=== PATIENT | female | born 1965 | race Caucasian/White ===

== ENCOUNTER → 2018-06-18 | Outpatient (CLI) | payer BC ==
[~2018-06-18] MED LIST: IOPAMIDOL 370 MG/ML 200 ML INFUS..BTL INJ ONE; METOPROLOL SUCC50 MG PO; NORCO 5-325 TA1 EACH PO; SODIUM CHLORIDE 0.9% 50ML 50 ML ONE
[2018-06-18 17:46] LABS: BLOOD UREA NITROGEN 18 mg/dL (7-26); BUN/CREATININE RATIO 25 (6-25); CREATININE, SERUM 0.73 mg/dL (0.57-1.11); EST GLOMERULAR FILTRATION RATE > 60 ML/MIN (60-)
--- NOTE | 2018-06-18 19:49 | Diagnostic Imaging Report ---
History: Follow-up multiple sclerosis Comparison studies:None Technique: Axial images were obtained from the brain and cervical spine with and without IV contrast. Coronal and sagittal images reconstructed from the axial data. Intravenous contrast: Yes Dose modulation, iterative reconstruction, and/or weight based adjustment of the mA/kV was utilized to reduce the radiation dose to as low as reasonably achievable. Findings: Head CT: Scalp/skull: No abnormalities. No fractures, blastic or lytic lesions. Brain sulci: Appropriate for age. Ventricles: Normal in size and configuration. No hydrocephalus. Extra-axial spaces: No masses. No fluid collections. Parenchyma: No significant white matter lesions. No masses, hemorrhage, acute or chronic cortical vascular insults. No abnormal enhancement. Sellar/suprasellar region: No abnormalities. Craniocervical junction: Patent foramen magnum. No Chiari one malformation. Cervical spine CT: Fractures: None. Soft tissues: No gross abnormalities. Atlantoaxial articulation: Intact. Alignment: Reversal of the cervical spine lordosis. No scoliosis. Cervicomedullary junction: No abnormalities. Patent foramen magnum. Vertebrae: No infection or neoplasm. Degenerative changes: Disc degeneration with decreased intervertebral space and endplate sclerotic changes at C6-7. Left uncinate process hypertrophy and facet hypertrophy at C5-6 and C6-7 results in no significant canal stenosis and moderate left foraminal narrowing at C6-7. Incidental findings: None. Impression: Head CT: 1. No abnormality. 2. The evaluation of white matter demyelinating lesions is limited on CT, recommend MRI with contrast for better assessment. Cervical spine CT: 1. No acute abnormalities. 2. Degenerative changes as described above. 3. Limited evaluation of the spinal cord, recommend MRI with contrast for assessment of cord lesions. Signed by: DR Eddie Ellis M.D. on 06/18/2018 7:46 PM
== END ==
LOC: CT 16:17
PROVIDERS: ATTEND Psychiatry & Neurology Clinical Neurophysiology
DX: G37.9 Demyelinating disease of central nervous system, unspecified (principal)
CPT/HCPCS: 36415; 70470; 72127; 82565; 84520; Q9967

== ENCOUNTER 2019-09-06 22:29 | Inpatient (IN) | payer BC ==
[~2019-09-06] VITALS: Ht 157.5 cm; Wt 62.6 kg
[~2019-09-06 22:29] MED LIST changes: -IOPAMIDOL 370 MG/ML 200 ML INFUS..BTL INJ ONE; -SODIUM CHLORIDE 0.9% 50ML 50 ML ONE
--- OUTSIDE RECORDS SUMMARY | 2019-09-06 22:31 | XMS REPORT ---
Author [facility] Address Unknown Phone Unavailable Care Team Providers Care Warehouse Logistics Manager Name Role Phone Unavailable Unavailable Payers Payer Name Policy Type Policy Number Effective Date Expiration Date Problems This patient has no known problems. Allergies, Adverse Reactions, Alerts Allergy Name Allergy Type Status Severity Reaction(s) Onset Date Inactive Date Treating Clinician Comments No Known Allergies DA Active U 2014-12-29 00:00:00 Medications This patient has no known medications. Results Test Description Test Time Test Comments Text Results Atomic Results Result Comments [facility] 2019-03-27 16:55:00 RUN DATE: 03/27/19 [place] - Lab PAGE 1 RUN TIME: 1655 Specimen Inquiry RUN USER: INTERFACE PATIENT: COXLOI LOC: CHAI Solis #: [id number] AGE/SX: 53/F ROOM: RE03/21/19REG DR: Jake Bains : 67 BED: DIS: [place] [facility] [facility] [place] SPEC #: [id number] RECD: 03/22/19 STATUS: MAGALYS FRANK #: [id number] YUE: 03/21/19- SUBM DR: Jake Bains MD ENTERED: 03/22/19 SP TYPE: STOMACH OTHR DR: Dasha Minaya MD ORDERED: GROSS COPIES TO: Dasha Minaya MD [address] [place] [address] Jake Bains MD [address] [place] [address] PROCEDURES: GROSS (03/26/19-1543) TISSUES: 1. ANTRAL BIOPSY - H-PYLORI 2. ESOPHAGUS, NOS - BX CLINICAL HISTORY COLLECTION DATE: 03/21/19 AP FINAL DIAGNOSIS Gastric antrum, biopsy: COMPATIBLE WITH MILD REACTIVE/CHEMICAL GASTROPATHY NO AREAS OF MUCOSAL EROSION/ULCERATION NO ACUTE INFLAMMATORY INFILTRATE PRESENT NEGATIVE FOR INTESTINAL METAPLASIA NEGATIVE FOR HELICOBACTER ORGANISMS NEGATIVE FOR MALIGNANCY Esophagus, biopsy: MIXED GLANDULAR AND SQUAMOUS EPITHELIUM WITH ELONGATION OF SQUAMOUS PAPILLAE, MILDLY INCREASED INTRAEPITHELIAL LYMPHOCYTES AND BASAL CELL HYPERPLASIA GASTRIC-TYPE GLANDULAR MUCOSA WITH MILD CHRONIC INFLAMMATION NEGATIVE FOR INTESTINAL METAPLASIA, DYSPLASIA AND MALIGNANCY REFLUX ESOPHAGITIS CONTINUED ON NEXT PAGE RUN DATE: 03/27/19 [facility] PAGE 2 RUN TIME: 5 Specimen Inquiry RUN USER: INTERFACE SPEC #: [id number] PATIENT: LOI COX #[id number] (Continued) FINAL DIAGNOSIS (Continued) RRB/debbie D [id number], [id number], [id number] MACROSCOPIC The first specimen is received in formalin, labeled with the patient's name, identified as "antrum", and consists of mendoza biopsy tissue measuring 0.3 cm, submitted as (1) for H E and Giemsa stains. The second specimen is received in formalin, labeled with the patient's name, identified as "esophagus", and consists of two mendoza biopsy tissue measuring 0.3 and 0.4 cm, submitted as (2). GROSS PERFORMED AT [facility] [address] [place] [id number] (p)[phone] MICROSCOPIC All of the stains, including any controls performed, stain appropriately. No goblet cell metaplasia is identified with alcian blue staining of the esophageal biopsy. MICROSCOPIC PERFORMED AT [facility] [address] [place] [address] [phone])[phone] PERFORMING SITE Diagnosis performed at: [facility], [place] [address] [place] [address] Signed SIGNATURE ON FILE Jay Mckeon MD 03/27/19 1655 END OF REPORT BASIC METABOLIC PANEL 2019-03-21 13:00:00 SODIUM (test code=NA) 145 mmol/L 136-145 POTASSIUM (test code=K) 4.5 mmol/L 3.5-5.1 CHLORIDE (test code=CL) 110.0 mmol/L 98-107 CARBON DIOXIDE (test code=CO2) 26.0 mmol/L 21-32 ANION GAP (test code=GAP) 13.5 10-20 GLUCOSE (test code=GLU) 85 mg/dL 74-106 BLOOD UREA NITROGEN (test code=BUN) 12 mg/dL 7-18 GLOMERULAR FILTRATION RATE (test code=GFR) > 60 mL/min >=60 Estimated GFR by using Modified MDRD formula.Chronic kidney disease is defined as either kidney damageor GFR <60 mL/min/1.73 m2 for >3 months. CREATININE (test code=CREAT) 0.90 mg/dL 0.55-1.02 Note change in reference range due to change in reagent. BUN/CREATININE RATIO (test code=BUN/CREA) 12.9 10-20 CALCIUM (test code=CA) 10.0 mg/dL 8.5-10.1 CBC W/AUTO [id number] 12:54:00* Test Item Value Reference Range Comments WHITE BLOOD CELL (test code=WBC) 7.8 K/mm3 4.5-12.5 RED BLOOD CELL (test code=RBC) 4.80 mill/mm3 3.7-5.2 HEMOGLOBIN (test code=HGB) 14.0 gram/dL 11.5-15.5 HEMATOCRIT (test code=HCT) 44.1 % 36.0-46.0 MEAN CELL VOLUME (test code=MCV) 91.9 fL 80-98 MEAN CELL HGB (test code=MCH) 29.2 picogram 27.0-33.0 MEAN CELL HGB CONCETRATION (test code=MCHC) 31.7 gram/dL 33.0-36.0 RED CELL DISTRIBUTION WIDTH (test code=RDW) 13.2 % 11.6-16.2 RED CELL DISTRIBUTION WIDTH SD (test code=RDW-SD) 44.5 fL 37.0-51.0 PLATELET COUNT (test code=PLT) 347 K/mm3 150-450 MEAN PLATELET VOLUME (test code=MPV) 10.4 fL 6.7-11.0 NEUTROPHIL % (test code=NT%) 71.0 % 39.0-69.0 IMMATURE GRANULOCYTE % (test code=IG%) 0.4 % 0.0-5.0 LYMPHOCYTE % (test code=LY%) 15.4 % 25.0-55.0 MONOCYTE % (test code=MO%) 11.2 % 0.0-10.0 EOSINOPHIL % (test code=EO%) 1.4 % 0.0-5.0 BASOPHIL % (test code=BA%) 0.6 % 0.0-1.0 NUCLEATED RBC % (test code=NRBC%) 0.0 % 0-0 NEUTROPHIL # (test code=NT#) 5.51 K/mm3 1.8-7.7 IMMATURE GRANULOCYTE # (test code=IG#) 0.03 x10 3/uL 0-0.03 LYMPHOCYTE # (test code=LY#) 1.20 K/mm3 1.0-5.0 MONOCYTE # (test code=MO#) 0.87 K/mm3 0-0.8 EOSINOPHIL # (test code=EO#) 0.11 K/mm3 0.0-0.5 BASOPHIL # (test code=BA#) 0.05 K/mm3 0.0-0.2 NUCLEATED RBC # (test code=NRBC#) 0.00 K/mm3 0.0-0.1 MANUAL DIFF REQUIRED (test code=MDIFF) NO BASIC METABOLIC [id number] 12:53:00* Test Item Value Reference Range Comments SODIUM (test code=NA) 145 mmol/L 136-145 POTASSIUM (test code=K) 4.5 mmol/L 3.5-5.1 CHLORIDE (test code=CL) 110.0 mmol/L 98-107 CARBON DIOXIDE (test code=CO2) mmol/L 21-32 ANION GAP (test code=GAP) 10-20 GLUCOSE (test code=GLU) mg/dL 74-106 BLOOD UREA NITROGEN (test code=BUN) mg/dL 7-18 GLOMERULAR FILTRATION RATE (test code=GFR) mL/min >=60 CREATININE (test code=CREAT) mg/dL 0.55-1.02 BUN/CREATININE RATIO (test code=BUN/CREA) 10-20 CALCIUM (test code=CA) mg/dL 8.5-10.1 - CT ABD PELVIS [id number] 13:02:00 Name: LOI COX [facility] : 1965 Age/S: 53 / F [address] [facility] Unit #: [id number] Loc: [place] [address] Phys: Cesar Dominguez MD Acct: [id number] Dis Date: Status: REG CLI PHONE #: [phone] Exam Date: 11/09/2018 1045 FAX #: [phone] Reason: PAIN EXAMS: CPT CODE: [id number] CT ABD PELVIS W/CONT 31650 HISTORY: Epigastric pain. COMPARISON: None available. CT of abdomen and pelvis with IV and oral contrast: 100 mL of Isovue 370. Automated exposure control. CT of abdomen: The lung bases are clear. The liver is enhancing homogeneously. Contracted gallbladder is without radiopaque stones. Unremarkable spleen. Stomach is distended incompletely with contrast with moderately thickened gastric antral wall. Correlate for gastritis. Pancreas is enhancing homogeneously. Adrenals are normal. Kidneys are free from hydroureteronephrosis. Homogeneous enhancement. Bilateral excretion. No pathologic adenopathy. Well-opacified abdominal and pelvic vasculature. No bowel obstruction or colitis or diverticulitis or enteritis. Constipation. Appendix is normal. Pelvic bowel loops are unobstructed. Unremarkable well-distended urinary bladder. No pelvic pathologic adenopathy. No free fluid or free air or abscess. Subcutaneous tissues and musculature are normal in appearance. No lytic or blastic le sions are noted within the bony skeleton. IMPRESSION: Thickened gastric antral wall with the nondependent wall measuring up to 6.4 mm. Correlate for gastritis. Normal appendix without bowel obstruction or colitis or diverticulitis or enteritis. Constipation. Unremarkable urinary bladder and homogeneous enhancement of the k idneys without hydroureteronephrosis. No free fluid, free air or PAGE 1 Signed Report (CONTINUED) Name: MARVIN COX [facility] : 1965 Age /S: 53 / F [address] [facility] Unit #: [id number] Loc: [place] [address] Phys: Cesar Dominguez MD Acct: [id number] Dis Date: Status: REG CLI PHONE #: [phone] Exam Date: 11/09/2018 1045 FAX #: [phone] Reason: PAIN EXAMS: CPT CODE: [id number] CT ABD PELVIS W/CONT 48606 <Continued> abscess. at 1302 Reported and signed by: Miguel Bird M.D. CC: Technologist:Roberto Bhagat RT(R),(MR),(CT); CTDI: DLP: Trnscb Date/Time: 11/09/2018 (0072) [email or web address] Orig Print D/T: S: 11/09/2018 (9324) CTDI: DLP: PAGE 2 Signed Report COMPREHENSIVE METABOLIC PANEL 2018-11-09 11:42:00* Test Item Value Reference Range Comments SODIUM (test code=NA) 141 mmol/L 136-145 POTASSIUM (test code=K) 4.0 mmol/L 3.5-5.1 CHLORIDE (test code=CL) 105.0 mmol/L 98-107 CARBON DIOXIDE (test code=CO2) 33.0 mmol/L 21-32 ANION GAP (test code=GAP) 7.0 10-20 GLUCOSE (test code=GLU) 79 mg/dL 74-106 BLOOD UREA NITROGEN (test code=BUN) 17 mg/dL 7-18 GLOMERULAR FILTRATION RATE (test code=GFR) > 60 mL/min >=60 Estimated GFR by using Modified MDRD formula.Chronic kidney disease is defined as either kidney damageor GFR <60 mL/min/1.73 m2 for >3 months. CREATININE (test code=CREAT) 0.80 mg/dL 0.55-1.02 Note change in reference range due to change in reagent. BUN/CREATININE RATIO (test code=BUN/CREA) 21.3 10-20 TOTAL PROTEIN (test code=PROT) 7.8 gram/dL 6.4-8.2 ALBUMIN (test code=ALB) 3.9 g/dL 3.4-5.0 GLOBULIN (test code=GLOB) 3.9 gram/dL 2.7-4.2 ALBUMIN/GLOBULIN RATIO (test code=A/G) 1.0 0.75-1.50 CALCIUM (test code=CA) 9.6 mg/dL 8.5-10.1 BILIRUBIN TOTAL (test code=BILT) 0.30 mg/dL 0.0-1.0 SGOT/AST (test code=AST) 66 IUnit/L 15-37 SGPT/ALT (test code=ALT) 77 IUnit/L 12-78 ALKALINE PHOSPHATASE TOTAL (test code=ALKP) 194 IUnit/L 45-117 Note change in reference range due to change in reagent. [id number] 11:42:00* Test Item Value Reference Range Comments LIPASE (test code=LIP) 162 U/L 73.0-393.0 COMPREHENSIVE METABOLIC [id number] 11:35:00* Test Item Value Reference Range Comments SODIUM (test code=NA) 141 mmol/L 136-145 POTASSIUM (test code=K) 4.0 mmol/L 3.5-5.1 CHLORIDE (test code=CL) 105.0 mmol/L 98-107 CARBON DIOXIDE (test code=CO2) mmol/L 21-32 ANION GAP (test code=GAP) 10-20 GLUCOSE (test code=GLU) mg/dL 74-106 BLOOD UREA NITROGEN (test code=BUN) mg/dL 7-18 GLOMERULAR FILTRATION RATE (test code=GFR) mL/min >=60 CREATININE (test code=CREAT) mg/dL 0.55-1.02 BUN/CREATININE RATIO (test code=BUN/CREA) 10-20 TOTAL PROTEIN (test code=PROT) gram/dL 6.4-8.2 ALBUMIN (test code=ALB) g/dL 3.4-5.0 GLOBULIN (test code=GLOB) gram/dL 2.7-4.2 ALBUMIN/GLOBULIN RATIO (test code=A/G) 0.75-1.50 CALCIUM (test code=CA) mg/dL 8.5-10.1 BILIRUBIN TOTAL (test code=BILT) mg/dL 0.0-1.0 SGOT/AST (test code=AST) IUnit/L 15-37 SGPT/ALT (test code=ALT) IUnit/L 12-78 ALKALINE PHOSPHATASE TOTAL (test code=ALKP) IUnit/L 45-117 [id number] 11:35:00* Test Item Value Reference Range Comments LIPASE (test code=LIP) U/L 73.0-393.0 CBC W/AUTO [id number] 10:42:00* Test Item Value Reference Range Comments WHITE BLOOD CELL (test code=WBC) 5.7 K/mm3 4.5-12.5 RED BLOOD CELL (test code=RBC) 4.53 mill/mm3 3.7-5.2 HEMOGLOBIN (test code=HGB) 12.8 gram/dL 11.5-15.5 HEMATOCRIT (test code=HCT) 41.1 % 36.0-46.0 MEAN CELL VOLUME (test code=MCV) 90.7 fL 80-98 MEAN CELL HGB (test code=MCH) 28.3 picogram 27.0-33.0 MEAN CELL HGB CONCETRATION (test code=MCHC) 31.1 gram/dL 33.0-36.0 RED CELL DISTRIBUTION WIDTH (test code=RDW) 13.9 % 11.6-16.2 RED CELL DISTRIBUTION WIDTH SD (test code=RDW-SD) 46.4 fL 37.0-51.0 PLATELET COUNT (test code=PLT) 351 K/mm3 150-450 MEAN PLATELET VOLUME (test code=MPV) 10.5 fL 6.7-11.0 NEUTROPHIL % (test code=NT%) 57.4 % 39.0-69.0 IMMATURE GRANULOCYTE % (test code=IG%) 0.2 % 0.0-5.0 LYMPHOCYTE % (test code=LY%) 22.9 % 25.0-55.0 MONOCYTE % (test code=MO%) 10.5 % 0.0-10.0 EOSINOPHIL % (test code=EO%) 8.0 % 0.0-5.0 BASOPHIL % (test code=BA%) 1.0 % 0.0-1.0 NUCLEATED RBC % (test code=NRBC%) 0.0 % 0-0 NEUTROPHIL # (test code=NT#) 3.28 K/mm3 1.8-7.7 IMMATURE GRANULOCYTE # (test code=IG#) 0.01 x10 3/uL 0-0.03 LYMPHOCYTE # (test code=LY#) 1.31 K/mm3 1.0-5.0 MONOCYTE # (test code=MO#) 0.60 K/mm3 0-0.8 EOSINOPHIL # (test code=EO#) 0.46 K/mm3 0.0-0.5 BASOPHIL # (test code=BA#) 0.06 K/mm3 0.0-0.2 NUCLEATED RBC # (test code=NRBC#) 0.00 K/mm3 0.0-0.1 MANUAL DIFF REQUIRED (test code=MDIFF) NO CBC W/AUTO [id number] 10:37:00* Test Item Value Reference Range Comments WHITE BLOOD CELL (test code=WBC) K/mm3 4.5-12.5 RED BLOOD CELL (test code=RBC) mill/mm3 3.7-5.2 HEMOGLOBIN (test code=HGB) 12.8 gram/dL 11.5-15.5 HEMATOCRIT (test code=HCT) 41.1 % 36.0-46.0 MEAN CELL VOLUME (test code=MCV) fL 80-98 MEAN CELL HGB (test code=MCH) picogram 27.0-33.0 MEAN CELL HGB CONCETRATION (test code=MCHC) gram/dL 33.0-36.0 RED CELL DISTRIBUTION WIDTH (test code=RDW) % 11.6-16.2 RED CELL DISTRIBUTION WIDTH SD (test code=RDW-SD) fL 37.0-51.0 PLATELET COUNT (test code=PLT) K/mm3 150-450 MEAN PLATELET VOLUME (test code=MPV) fL 6.7-11.0 NEUTROPHIL % (test code=NT%) % 39.0-69.0 IMMATURE GRANULOCYTE % (test code=IG%) % 0.0-5.0 LYMPHOCYTE % (test code=LY%) % 25.0-55.0 MONOCYTE % (test code=MO%) % 0.0-10.0 EOSINOPHIL % (test code=EO%) % 0.0-5.0 BASOPHIL % (test code=BA%) % 0.0-1.0 NEUTROPHIL # (test code=NT#) K/mm3 1.8-7.7 LYMPHOCYTE # (test code=LY#) K/mm3 1.0-5.0 MONOCYTE # (test code=MO#) K/mm3 0-0.8 EOSINOPHIL # (test code=EO#) K/mm3 0.0-0.5 BASOPHIL # (test code=BA#) K/mm3 0.0-0.2 BASIC METABOLIC [id number] 07:39:00* Test Item Value Reference Range Comments SODIUM (test code=NA) 139 mmol/L 136-145 POTASSIUM (test code=K) 4.0 mmol/L 3.5-5.1 CHLORIDE (test code=CL) 100.0 mmol/L 98-107 CARBON DIOXIDE (test code=CO2) 31.0 mmol/L 21-32 ANION GAP (test code=GAP) 12.0 10-20 GLUCOSE (test code=GLU) 84 mg/dL 74-106 BLOOD UREA NITROGEN (test code=BUN) 12 mg/dL 7-18 GLOMERULAR FILTRATION RATE (test code=GFR) 58 mL/min >=60 Estimated GFR by using Modified MDRD formula.Chronic kidney disease is defined as either kidney damageor GFR <60 mL/min/1.73 m2 for >3 months. CREATININE (test code=CREAT) 1.00 mg/dL 0.55-1.02 Note change in reference range due to change in reagent. BUN/CREATININE RATIO (test code=BUN/CREA) 11.8 10-20 CALCIUM (test code=CA) 9.9 mg/dL 8.5-10.1 [id number] 07:39:00* Test Item Value Reference Range Comments MAGNESIUM (test code=MAG) 2.6 mg/dL 1.8-2.4 BASIC METABOLIC [id number] 07:29:00* Test Item Value Reference Range Comments SODIUM (test code=NA) 139 mmol/L 136-145 POTASSIUM (test code=K) 4.0 mmol/L 3.5-5.1 CHLORIDE (test code=CL) 100.0 mmol/L 98-107 CARBON DIOXIDE (test code=CO2) mmol/L 21-32 ANION GAP (test code=GAP) 10-20 GLUCOSE (test code=GLU) mg/dL 74-106 BLOOD UREA NITROGEN (test code=BUN) mg/dL 7-18 GLOMERULAR FILTRATION RATE (test code=GFR) mL/min >=60 CREATININE (test code=CREAT) mg/dL 0.55-1.02 BUN/CREATININE RATIO (test code=BUN/CREA) 10-20 CALCIUM (test code=CA) mg/dL 8.5-10.1 [id number] 07:29:00* Test Item Value Reference Range Comments MAGNESIUM (test code=MAG) mg/dL 1.8-2.4 CBC W/AUTO [id number] 07:21:00* Test Item Value Reference Range Comments WHITE BLOOD CELL (test code=WBC) 9.9 K/mm3 4.5-12.5 RED BLOOD CELL (test code=RBC) 4.36 mill/mm3 3.7-5.2 HEMOGLOBIN (test code=HGB) 12.3 gram/dL 11.5-15.5 HEMATOCRIT (test code=HCT) 40.8 % 36.0-46.0 MEAN CELL VOLUME (test code=MCV) 93.6 fL 80-98 MEAN CELL HGB (test code=MCH) 28.2 picogram 27.0-33.0 MEAN CELL HGB CONCETRATION (test code=MCHC) 30.1 gram/dL 33.0-36.0 RED CELL DISTRIBUTION WIDTH (test code=RDW) 12.3 % 11.6-16.2 RED CELL DISTRIBUTION WIDTH SD (test code=RDW-SD) 42.1 fL 37.0-51.0 PLATELET COUNT (test code=PLT) 597 K/mm3 150-450 MEAN PLATELET VOLUME (test code=MPV) 9.5 fL 6.7-11.0 NEUTROPHIL % (test code=NT%) 63.0 % 39.0-69.0 IMMATURE GRANULOCYTE % (test code=IG%) 0.7 % 0.0-5.0 LYMPHOCYTE % (test code=LY%) 15.7 % 25.0-55.0 MONOCYTE % (test code=MO%) 13.8 % 0.0-10.0 EOSINOPHIL % (test code=EO%) 6.1 % 0.0-5.0 BASOPHIL % (test code=BA%) 0.7 % 0.0-1.0 NUCLEATED RBC % (test code=NRBC%) 0.0 % 0-0 NEUTROPHIL # (test code=NT#) 6.24 K/mm3 1.8-7.7 IMMATURE GRANULOCYTE # (test code=IG#) 0.07 x10 3/uL 0-0.03 LYMPHOCYTE # (test code=LY#) 1.55 K/mm3 1.0-5.0 MONOCYTE # (test code=MO#) 1.37 K/mm3 0-0.8 EOSINOPHIL # (test code=EO#) 0.60 K/mm3 0.0-0.5 BASOPHIL # (test code=BA#) 0.07 K/mm3 0.0-0.2 NUCLEATED RBC # (test code=NRBC#) 0.00 K/mm3 0.0-0.1 MANUAL DIFF REQUIRED (test code=MDIFF) NO CBC W/AUTO [id number] 07:11:00* Test Item Value Reference Range Comments WHITE BLOOD CELL (test code=WBC) K/mm3 4.5-12.5 RED BLOOD CELL (test code=RBC) mill/mm3 3.7-5.2 HEMOGLOBIN (test code=HGB) 12.3 gram/dL 11.5-15.5 HEMATOCRIT (test code=HCT) 40.8 % 36.0-46.0 MEAN CELL VOLUME (test code=MCV) fL 80-98 MEAN CELL HGB (test code=MCH) picogram 27.0-33.0 MEAN CELL HGB CONCETRATION (test code=MCHC) gram/dL 33.0-36.0 RED CELL DISTRIBUTION WIDTH (test code=RDW) % 11.6-16.2 RED CELL DISTRIBUTION WIDTH SD (test code=RDW-SD) fL 37.0-51.0 PLATELET COUNT (test code=PLT) K/mm3 150-450 MEAN PLATELET VOLUME (test code=MPV) fL 6.7-11.0 NEUTROPHIL % (test code=NT%) % 39.0-69.0 IMMATURE GRANULOCYTE % (test code=IG%) % 0.0-5.0 LYMPHOCYTE % (test code=LY%) % 25.0-55.0 MONOCYTE % (test code=MO%) % 0.0-10.0 EOSINOPHIL % (test code=EO%) % 0.0-5.0 BASOPHIL % (test code=BA%) % 0.0-1.0 NEUTROPHIL # (test code=NT#) K/mm3 1.8-7.7 LYMPHOCYTE # (test code=LY#) K/mm3 1.0-5.0 MONOCYTE # (test code=MO#) K/mm3 0-0.8 EOSINOPHIL # (test code=EO#) K/mm3 0.0-0.5 BASOPHIL # (test code=BA#) K/mm3 0.0-0.2 SMALL [id number] 13:57:00 RUN DATE: 08/31/18 [place] [facility] PAGE 1 RUN TIME: 1357 Specimen Inqui ry RUN USER: INTERFACE PATIENT: LOI COX ACCT #: [id number] LOC: [place] U #: [id number] AGE/SX: 53/F ROOM: [facility] RE08/29/18SEJAL DR: Carroll Bhandari MD : 67 BED: A DIS: STATUS: ADM IN TLOC: SPEC #: [id number] RECD: 08/29/18 STATUS: MAGALYS REQ #: [id number] YUE: 08/29/18 DR: Cesar Dominguez MD ENTERED: 08/29/18 SP TYPE: SMALL INTE OTHR DR: Elias Hughes MD, Hsiao C MDORDERED: GROSS COPIES TO: Elias Addison MD [address] [place], [place] [id number] Cesar Dominguez MD [address] [place] [address] Andrez Castillo MD [address] [place] [address] PROCEDURES: GROSS (08/31/18) TISSUES : SMALL INTESTINE, NOS CLINICAL HISTORY COLLECTION DATE: 08/29/18 BOWEL OBSTRUCTION FINAL DIAGNOSIS Small bowel, partial res ection: SMALL BOWEL DIVERTICULA, PERFORATED WITH TRANSMURAL MARKED INFLAM MATION AND NECROSIS NEGATIVE FOR MALIGNANCY FA/sm D 27584 CONTINUED ON NEXT PAGE RUN DATE: 08/31/18 [facility] PAGE 2 RUN TIME: 1357 Specimen Inquiry RUN USER: INTERFACE SPEC #: [id number] PATIENT: LOI COX #[id number] (Continued) MACROSCOPIC The speci men is received in formalin, labeled with the patient's name, and identified a s "small bowel" and consists of a 12.5 cm portion of small bowel with a diamet er of 3.3 to 3.5 cm. Within the center of the specimen there is a peforation surrounded by indurated tissue (4.5 X 4.0 cm) with fibrinopurulent deposition on the serosal surface. There is a small amount of attached adipose tissue wh ich is indurated and firm measuring 5 X 2 X 0.7 cm. Also received in the same container is a detached portion of adipose tissue measuring 4.5 X 3.0 X 2.0 c m. The specimen is opened to reveal a mendoza-pink glistening mucosa with normal small bowel folds. There is a small diverticula measuring 0.1 cm and connecte d to aforementioned perforation. Surgical margins are viable. Section Cod e: 1A- surgical margins, 1B-1D- multiple representatives of perforated area wi th underlying indurated tissue. GROSS PERFORMED AT [facility] [address] [place] [address], [place] [address] [phone] MICROSCOPIC Microscopic evaluation of multiple represen tative of sections show perforation with transmural acute inflammatory infiltr ates with necroinflammatory debris, inflamed granulation tissue, acute serosit is, fat necrosis and reactive epithelial changes. Vascular congestion, microh emorrhage, edema, lymphoid aggregates are also present. Sections of the small bowel adjacent to the perforation shows mild chronic inflammatory infiltrates. Sections of the surgical margins also show nonspecific mild chronic inflamm ation. No granuloma, microorganisms, dysplasia or malignancy is identified. MICROSCOPIC PERFORMED AT [facility] All of the stains, including any controls performed, stain appropriately. [facility] [address] [facility], [place] [address] [phone] CONTINUED ON NEXT PAGE RUN DATE: 08/31/18 [place] - Lab PAGE 3 RUN TIME: 1357 Specimen Inquiry RUN USER: INTERFACE SPEC #: [id number] PATIENT: [facility] #[id number] (Continued) PERFORMING SITE Diagnosis performed at: [facility] [address] [facility] [place] [phone] Signed SIGNATURE ON FILE Cristino Avila MD 08/31/18 1357 END OF REPORT BASIC METABOLIC [id number] 06:09:00* Test Item Value Reference Range Comments SODIUM (test code=NA) 142 mmol/L 136-145 POTASSIUM (test code=K) 4.1 mmol/L 3.5-5.1 CHLORIDE (test code=CL) 105.0 mmol/L 98-107 CARBON DIOXIDE (test code=CO2) 29.0 mmol/L 21-32 ANION GAP (test code=GAP) 12.1 10-20 GLUCOSE (test code=GLU) 72 mg/dL 74-106 BLOOD UREA NITROGEN (test code=BUN) 11 mg/dL 7-18 GLOMERULAR FILTRATION RATE (test code=GFR) > 60 mL/min >=60 Estimated GFR by using Modified MDRD formula.Chronic kidney disease is defined as either kidney damageor GFR <60 mL/min/1.73 m2 for >3 months. CREATININE (test code=CREAT) 0.80 mg/dL 0.55-1.02 Note change in reference range due to change in reagent. BUN/CREATININE RATIO (test code=BUN/CREA) 13.8 10-20 CALCIUM (test code=CA) 8.2 mg/dL 8.5-10.1 [id number] 06:09:00* Test Item Value Reference Range Comments MAGNESIUM (test code=MAG) 2.2 mg/dL 1.8-2.4 BASIC METABOLIC [id number] 05:58:00* Test Item Value Reference Range Comments SODIUM (test code=NA) 142 mmol/L 136-145 POTASSIUM (test code=K) 4.1 mmol/L 3.5-5.1 CHLORIDE (test code=CL) 105.0 mmol/L 98-107 CARBON DIOXIDE (test code=CO2) mmol/L 21-32 ANION GAP (test code=GAP) 10-20 GLUCOSE (test code=GLU) mg/dL 74-106 BLOOD UREA NITROGEN (test code=BUN) mg/dL 7-18 GLOMERULAR FILTRATION RATE (test code=GFR) mL/min >=60 CREATININE (test code=CREAT) mg/dL 0.55-1.02 BUN/CREATININE RATIO (test code=BUN/CREA) 10-20 CALCIUM (test code=CA) mg/dL 8.5-10.1 [id number] 05:58:00* Test Item Value Reference Range Comments MAGNESIUM (test code=MAG) mg/dL 1.8-2.4 CBC W/AUTO [id number] 05:52:00* Test Item Value Reference Range Comments WHITE BLOOD CELL (test code=WBC) 10.4 K/mm3 4.5-12.5 RED BLOOD CELL (test code=RBC) 3.06 mill/mm3 3.7-5.2 HEMOGLOBIN (test code=HGB) 8.5 gram/dL 11.5-15.5 HEMATOCRIT (test code=HCT) 28.8 % 36.0-46.0 MEAN CELL VOLUME (test code=MCV) 94.1 fL 80-98 MEAN CELL HGB (test code=MCH) 27.8 picogram 27.0-33.0 MEAN CELL HGB CONCETRATION (test code=MCHC) 29.5 gram/dL 33.0-36.0 RED CELL DISTRIBUTION WIDTH (test code=RDW) 12.7 % 11.6-16.2 RED CELL DISTRIBUTION WIDTH SD (test code=RDW-SD) 43.6 fL 37.0-51.0 PLATELET COUNT (test code=PLT) 390 K/mm3 150-450 RESULT VERIFIED BY REPEAT ANALYSIS MEAN PLATELET VOLUME (test code=MPV) 9.8 fL 6.7-11.0 NEUTROPHIL % (test code=NT%) 79.0 % 39.0-69.0 IMMATURE GRANULOCYTE % (test code=IG%) 0.4 % 0.0-5.0 LYMPHOCYTE % (test code=LY%) 9.9 % 25.0-55.0 MONOCYTE % (test code=MO%) 9.7 % 0.0-10.0 EOSINOPHIL % (test code=EO%) 0.5 % 0.0-5.0 BASOPHIL % (test code=BA%) 0.5 % 0.0-1.0 NUCLEATED RBC % (test code=NRBC%) 0.0 % 0-0 NEUTROPHIL # (test code=NT#) 8.23 K/mm3 1.8-7.7 IMMATURE GRANULOCYTE # (test code=IG#) 0.04 x10 3/uL 0-0.03 LYMPHOCYTE # (test code=LY#) 1.03 K/mm3 1.0-5.0 MONOCYTE # (test code=MO#) 1.01 K/mm3 0-0.8 EOSINOPHIL # (test code=EO#) 0.05 K/mm3 0.0-0.5 BASOPHIL # (test code=BA#) 0.05 K/mm3 0.0-0.2 NUCLEATED RBC # (test code=NRBC#) 0.00 K/mm3 0.0-0.1 COMPREHENSIVE METABOLIC [id number] 04:42:00* Test Item Value Reference Range Comments SODIUM (test code=NA) 144 mmol/L 136-145 POTASSIUM (test code=K) 4.3 mmol/L 3.5-5.1 CHLORIDE (test code=CL) 111.0 mmol/L 98-107 CARBON DIOXIDE (test code=CO2) 27.0 mmol/L 21-32 ANION GAP (test code=GAP) 10.3 10-20 GLUCOSE (test code=GLU) 107 mg/dL 74-106 BLOOD UREA NITROGEN (test code=BUN) 13 mg/dL 7-18 GLOMERULAR FILTRATION RATE (test code=GFR) > 60 mL/min >=60 Estimated GFR by using Modified MDRD formula.Chronic kidney disease is defined as either kidney damageor GFR <60 mL/min/1.73 m2 for >3 months. CREATININE (test code=CREAT) 0.80 mg/dL 0.55-1.02 Note change in reference range due to change in reagent. BUN/CREATININE RATIO (test code=BUN/CREA) 15.4 10-20 TOTAL PROTEIN (test code=PROT) 5.4 gram/dL 6.4-8.2 ALBUMIN (test code=ALB) 2.1 g/dL 3.4-5.0 GLOBULIN (test code=GLOB) 3.3 gram/dL 2.7-4.2 ALBUMIN/GLOBULIN RATIO (test code=A/G) 0.6 0.75-1.50 CALCIUM (test code=CA) 8.1 mg/dL 8.5-10.1 BILIRUBIN TOTAL (test code=BILT) 0.30 mg/dL 0.0-1.0 SGOT/AST (test code=AST) 16 IUnit/L 15-37 SGPT/ALT (test code=ALT) 21 IUnit/L 12-78 ALKALINE PHOSPHATASE TOTAL (test code=ALKP) 83 IUnit/L 45-117 Note change in reference range due to change in reagent. [id number] 04:42:00* Test Item Value Reference Range Comments MAGNESIUM (test code=MAG) 2.0 mg/dL 1.8-2.4 CBC W/AUTO [id number] 04:17:00* Test Item Value Reference Range Comments WHITE BLOOD CELL (test code=WBC) 14.2 K/mm3 4.5-12.5 RED BLOOD CELL (test code=RBC) 3.18 mill/mm3 3.7-5.2 HEMOGLOBIN (test code=HGB) 9.1 gram/dL 11.5-15.5 HEMATOCRIT (test code=HCT) 29.7 % 36.0-46.0 MEAN CELL VOLUME (test code=MCV) 93.4 fL 80-98 MEAN CELL HGB (test code=MCH) 28.6 picogram 27.0-33.0 MEAN CELL HGB CONCETRATION (test code=MCHC) 30.6 gram/dL 33.0-36.0 RED CELL DISTRIBUTION WIDTH (test code=RDW) 12.6 % 11.6-16.2 RED CELL DISTRIBUTION WIDTH SD (test code=RDW-SD) 43.2 fL 37.0-51.0 PLATELET COUNT (test code=PLT) 338 K/mm3 150-450 MEAN PLATELET VOLUME (test code=MPV) 9.6 fL 6.7-11.0 NEUTROPHIL % (test code=NT%) 89.5 % 39.0-69.0 IMMATURE GRANULOCYTE % (test code=IG%) 0.4 % 0.0-5.0 LYMPHOCYTE % (test code=LY%) 4.0 % 25.0-55.0 MONOCYTE % (test code=MO%) 5.9 % 0.0-10.0 EOSINOPHIL % (test code=EO%) 0.0 % 0.0-5.0 BASOPHIL % (test code=BA%) 0.2 % 0.0-1.0 NUCLEATED RBC % (test code=NRBC%) 0.0 % 0-0 NEUTROPHIL # (test code=NT#) 12.68 K/mm3 1.8-7.7 IMMATURE GRANULOCYTE # (test code=IG#) 0.05 x10 3/uL 0-0.03 LYMPHOCYTE # (test code=LY#) 0.57 K/mm3 1.0-5.0 MONOCYTE # (test code=MO#) 0.83 K/mm3 0-0.8 EOSINOPHIL # (test code=EO#) 0.00 K/mm3 0.0-0.5 BASOPHIL # (test code=BA#) 0.03 K/mm3 0.0-0.2 NUCLEATED RBC # (test code=NRBC#) 0.00 K/mm3 0.0-0.1 MANUAL DIFF REQUIRED (test code=MDIFF) NO CT CERVICAL SPINE [id number] 19:36:00 [place] [address] Patient Name: LOI COX MR #: [id number] : 1965 Age/Sex: 52/F Req #: [id number] Adm Physician: Ordered by: KETAN FRYE MD Report #: [id number] Location: CT Room/Bed: Procedure: [id number] CT/ CT CERVICAL SPINE WOW Exam Date: Exam Time: REPORT STATUS: Signed History: Follow- up multiple sclerosis Comparison studies:None Technique: Axial images w ere obtained from the brain and cervical spine with and without IV contrast. Coronal and sagittal images reconstructed from the axial data. Intravenous co ntrast: Yes Dose modulation, iterative reconstruction, and/or weight based adj ustment of the mA/kV was utilized to reduce the radiation dose to as low as re asonably achievable. Findings: Head CT: Scalp/skull: No abno rmalities. No fractures, blastic or lytic lesions. Brain sulci: Appropriate for age. Ventricles: Normal in size and configuration. No hydrocephalus. Extra-axial spaces: No masses. No fluid collections. Parenchyma: No significant white matter lesions. No masses, hemorrhage, acute or chronic co rtical vascular insults. No abnormal enhancement. Sellar/suprasellar krish on: No abnormalities. Craniocervical junction: Patent foramen magnum. No Tonio ri one malformation. Cervical spine CT: Fractures: None. Soft tissue s: No gross abnormalities. Atlantoaxial articulation: Intact. Alignment: Reversal of the cervical spine lordosis. No scoliosis. Cervicomedullary juncti on: No abnormalities. Patent foramen magnum. Vertebrae: No infection or neoplasm. Degenerative changes: Disc degeneration with decreased interve rtebral space and endplate sclerotic changes at C6-7. Left uncinate process hypertrophy and facet hypertrophy at C5-6 and C6-7 results in no significant c anal stenosis and moderate left foraminal narrowing at C6-7. Incidental f indings: None. Impression: Head CT: 1. No abnormality. 2. The evaluation of white matter demyelinating lesions is limited on CT, recommend M RI with contrast for better assessment. Cervical spine CT: 1. No acute a bnormalities. 2. Degenerative changes as described above. 3. Limited evalu ation of the spinal cord, recommend MRI with contrast for assessment of cord l esions. Signed by: DR Eddie Ellis M.D. on 06/18/2018 7:46 PM Dictated By: EDDIE HUITRON MD 45 Transcribed By: JULIA on 06/18/181945 COPY TO: MONDAYKETAN MD CT BRAIN [id number] 19:36:00 [facility] [address] [address] Patient Name: LOI COX MR #: [id number] : 1965 Age/Sex: 52/F Req #: [id number] Adm Physician: Ordered by: UDAYKETAN FUENTES MD Report #: [id number] Location: CT Room/Bed: Procedure: [id number] CT/ CT BRAIN WOW Exam Date: Exam Time: REPORT STATUS: Signed History: Follow-up multip le sclerosis Comparison studies:None Technique: Axial images were obtai nataliia from the brain and cervical spine with and without IV contrast. Coronal and sagittal images reconstructed from the axial data. Intravenous contrast: Y es Dose modulation, iterative reconstruction, and/or weight based adjustment o f the mA/kV was utilized to reduce the radiation dose to as low as reasonably achievable. Findings: Head CT: Scalp/skull: No abnormalities. No fractures, blastic or lytic lesions. Brain sulci: Appropriate for age. Ventricles: Normal in size and configuration. No hydrocephalus. Extra-axial spaces: No masses. No fluid collections. Parenchyma: No significant white matter lesions. No masses, hemorrhage, acute or chronic cortical va scular insults. No abnormal enhancement. Sellar/suprasellar region: No ab normalities. Craniocervical junction: Patent foramen magnum. No Chiari one ma lformation. Cervical spine CT: Fractures: None. Soft tissues: No rowdy ss abnormalities. Atlantoaxial articulation: Intact. Alignment: Reversal of the cervical spine lordosis. No scoliosis. Cervicomedullary junction: No ab normalities. Patent foramen magnum. Vertebrae: No infection or neoplasm. Degenerative changes: Disc degeneration with decreased intervertebral s pace and endplate sclerotic changes at C6-7. Left uncinate process hypertrop hy and facet hypertrophy at C5-6 and C6-7 results in no significant canal sten osis and moderate left foraminal narrowing at C6-7. Incidental findings: None. Impression: Head CT: 1. No abnormality. 2. The evaluation of white matter demyelinating lesions is limited on CT, recommend MRI with c ontrast for better assessment. Cervical spine CT: 1. No acute abnormalit ies. 2. Degenerative changes as described above. 3. Limited evaluation of the spinal cord, recommend MRI with contrast for assessment of cord lesions. Signed by: DR Eddie Ellis M.D. on 06/18/2018 7:46 PM Dictat ed By: EDDIE HUITRON MD 45 Transcribed By: JULIA on 06/18/181945 COPY TO: KETAN FRYE MD
[2019-09-06] MEDS ORDERED: ONDANSETRON HCL INJ 2MG/ML 2ML 2 MG/ML VIAL IV STA (23:51)
[2019-09-06] MEDS ORDERED: SODIUM CHLORIDE 0.9% 1000ML 1,000 ML ONE (23:59)
[2019-09-07] MEDS ORDERED: SODIUM CHLORIDE 0.9% 1000ML 1,000 ML IV ONE
[2019-09-07 00:36] LABS: BASOPHILS # (AUTO) 0.1 (0.0-0.1); BASOPHILS % 0.5 % (0.0-1.0); EOSINOPHILS # (AUTO) 0.1 (0.0-0.4); EOSINOPHILS % 0.3 % (0.0-6.0); HEMATOCRIT 28.5 % (34.2-44.1); HEMOGLOBIN 8.9 g/dL (12.0-16.0); LYMPHOCYTES # (AUTO) 0.9 (1.0-3.2); LYMPHOCYTES % 4.9 % (18.0-39.1); MEAN CORPUSCULAR HEMOGLOBIN 28.1 pg (28-32); MEAN CORPUSCULAR HGB CONC 31.2 g/dL (31-35); MEAN CORPUSCULAR VOLUME 89.9 fL (81-99); MONOCYTES % 5.5 % (4.4-11.3); NEUTROPHILS # (AUTO) 15.2 (2.1-6.9); NEUTROPHILS % 87.5 % (38.7-80.0); PLATELET COUNT 494 x10e3/uL (140-360); RED BLOOD COUNT 3.17 x10e6/uL (3.6-5.1); RED CELL DISTRIBUTION WIDTH 13.7 % (11.7-14.4)
[2019-09-07] MEDS ORDERED: ONDANSETRON HCL INJ 2MG/ML 2ML 2 MG/ML VIAL IV STA (00:47)
[2019-09-07] MEDS ORDERED: MORPHINE SULFATE 2 MG/ML SYR 1ML IV STA (00:47)
[2019-09-07] MEDS ORDERED: SODIUM CHLORIDE 0.9% 1000ML 1,000 ML IV SCH (01:00)
[2019-09-07 01:02] LABS: ALANINE AMINOTRANSFERASE 167 IU/L (0-55); ALBUMIN 2.3 g/dL (3.5-5.0); ALBUMIN/GLOBULIN RATIO 0.5 (0.8-2.0); ALKALINE PHOSPHATASE 253 IU/L (40-150); ANION GAP 17.4 mmol/L (8-16); BLOOD UREA NITROGEN 12 mg/dL (7-26); BUN/CREATININE RATIO 15 (6-25); CARBON DIOXIDE 24 mmol/L (22-29); CHLORIDE 95 mmol/L (98-107); CREATININE, SERUM 0.81 mg/dL (0.57-1.11); EST GLOMERULAR FILTRATION RATE > 60 ML/MIN (60-); GLUCOSE 111 mg/dL (74-118); POTASSIUM 3.4 mmol/L (3.5-5.1); SODIUM 133 mmol/L (136-145)
[2019-09-07 01:23] LABS: CLARITY,URINE CLEAR (CLEAR); COLOR,URINE YELLOW (YELLOW)
[2019-09-07 01:24] LABS: BACTERIA,URINE MANY /HPF; BILIRUBIN,URINE NEGATIVE (NEGATIVE); EPITHELIAL CELLS,URINE MANY /LPF; KETONES,URINE NEGATIVE (NEGATIVE); LEUKOCYTE ESTERASE ,URINE NEGATIVE (NEGATIVE); NITRITE,URINE NEGATIVE (NEGATIVE); PROTEIN,URINE DIPSTICK NEGATIVE (NEGATIVE); URINE UROBILINOGEN 1 mg/dL (0.2 - 1); WBC,URINE (MAN) >50 /HPF (0-5)
[2019-09-07] MEDS ORDERED: SODIUM CHLORIDE 0.9% 50ML 50 ML ONE (01:41)
[2019-09-07] MEDS ORDERED: IOPAMIDOL 370 MG/ML 200 ML INFUS..BTL INJ ONE (01:41)
[2019-09-07 01:54] LABS: AMYLASE 51 U/L (25-125); LIPASE 60 U/L (8-78)
[2019-09-07] MEDS ORDERED: PIPER-TAZ 3.375 GM 50 ML IV ONE (02:15)
--- NOTE | 2019-09-07 03:29 | Diagnostic Imaging Report ---
EXAM: CT Abdomen and Pelvis WITH contrast INDICATION: Abdominal pain COMPARISON: None. TECHNIQUE: Abdomen and pelvis were scanned utilizing a multidetector helical scanner from the lung base to the pubic symphysis after administration of IV contrast. Coronal and sagittal reformations were obtained. Routine protocol was performed. Scan was performed when during portal venous phase. IV CONTRAST: 100 mL of Isovue 370 ORAL CONTRAST: None COMPLICATIONS: None RADIATION DOSE: Total DLP: 237 mGy*cm Estimated effective dose: (DLP x 0.015 x size factor) mSv CTDIvol has been reviewed. It is below the limits set by the Radiation Protocol Committee (RPC). Dose modulation, iterative reconstruction, and/or weight based adjustment of the mA/kV was utilized to reduce the radiation dose to as low as reasonably achievable. FINDINGS: LINES and TUBES: Cardiac device lead in the right ventricle. LOWER THORAX: Unremarkable HEPATOBILIARY: An 4.9 by 4.2 x 3 cm ill-defined hypodensity in the hepatic segment 7 with a few adjacent hypodense nodules. Questionable biliary ductal dilation in the right hepatic lobe GALLBLADDER: No radio-opaque stones or sludge. No wall thickening. SPLEEN: Mild splenomegaly measures up to 13.6 cm. PANCREAS: No focal masses or ductal dilatation. ADRENALS: No adrenal nodules KIDNEYS/URETERS: Kidneys enhance symmetrically. No hydronephrosis. No cystic or solid mass lesions. No stones. GI TRACT: Mild distal gastric antral wall thickening, submucosal edema, and mucosal hyperenhancement. Bowel sutures within the mid small intestine bowel loops. Subtle right colonic wall thickening. Thickened second segment duodenal diverticulum. No abnormal distention or evidence of bowel obstruction. Appendix is normal. PELVIC ORGANS/BLADDER: Hysterectomy. No adnexal masses. LYMPH NODES: A few slightly prominent subcentimeter portal lymph nodes. VESSELS: Inability biliary occlusive thrombus within the main portal vein, portal vein branches, and superior mesenteric artery. Common origin of the celiac and superior mesenteric arteries.. PERITONEUM / RETROPERITONEUM: No free air or fluid. BONES: There are degenerative changes in the spine. SOFT TISSUES: A 5.1 cm central supraumbilical ventral fat-containing abdominal hernia through a 2.7 cm peritoneal defect with surrounding fat stranding IMPRESSION: 1. Main and bilateral portal vein, with an ill-defined 4.9 cm hypodensity in the right hepatic lobe concerning for malignancy. Recommend liver MRI for further evaluation. Mild splenomegaly and mild colonic wall thickening is likely due to portal hypertension/congestion. 2. A 5.1 cm central ventral supraumbilical fat-containing abdominal hernia with surrounding inflammatory changes concerning for strangulation or acute worsening. 3. Findings of antral gastritis. Findings discussed with ER provider Dr. Hernadez at 3:20 AM on 09/07/[address] Gonzalez via telephone. Signed by: Darryl Gonzalez DO on 09/07/2019 3:26 AM
[2019-09-07] MEDS ORDERED: HEPARIN SOD (PORCINE) 5,000 UNIT/ML VIAL IV ONE (03:45)
--- NOTE | 2019-09-07 04:02 | NUR ---
Awaiting initial pt and ptt to start heparin drip.
[2019-09-07 04:39] LABS: INR 1.2
[2019-09-07 04:40] LABS: PARTIAL THROMBOPLASTIN TIME 44.5 seconds (23.8-35.5)
[2019-09-07] MEDS ORDERED: HEPARIN 25,000 UNIT DRIP IV ONE (05:11)
[2019-09-07] MEDS: HEPARIN 25,000 UNIT 25,000 UNIT in DEXTROSE 5% 250ML 0 ML IV SCH (05:14)
[2019-09-07] MEDS ORDERED: PIPER-TAZ 3.375 GM 50 ML IV SCH (06:00)
[2019-09-07] MEDS: MORPHINE SULFATE 2 MG/ML SYR 1ML IV PRN ×3 (06:22→22:15)
[2019-09-07] MEDS: ONDANSETRON HCL INJ 2MG/ML 2ML 2 MG/ML VIAL IV PRN ×3 (06:22→20:06)
[2019-09-07] MEDS ORDERED: MORPHINE SULFATE INJ 4 MG/ML INJ 1ML ONE (06:23)
--- NOTE | 2019-09-07 07:08 | NUR ---
Report to ERNESTO Greene. Patient resting with no distress noted.
[2019-09-07] MEDS: PIPER-TAZ 3.375 GM 50 ML IV SCH ×3 (10:51→22:10)
[2019-09-07 11:14] LABS: INR 1.23; PROTHROMBIN TIME 16.3 seconds (11.9-14.5)
[2019-09-07 11:16] LABS: PARTIAL THROMBOPLASTIN TIME 78.5 seconds (23.8-35.5)
--- NOTE | 2019-09-07 11:28 | NUR ---
DR. SUN IN TO SEE THE PATIENT AT THIS TIME.
--- NOTE | 2019-09-07 11:44 | NUR ---
the ptt is 78.5; no change in the heparin drip.
--- NOTE | 2019-09-07 12:17 | NUR ---
received report from ERNESTO Boone from ER for pt coming to room 213. awaiting pt's arrival to room.
--- NOTE | 2019-09-07 12:18 | NUR ---
report given to the nurse for this patient to go to rm 213
[2019-09-07 12:55] VITALS: BP 118/67
--- NOTE | 2019-09-07 12:55 | NUR ---
PT ARRIVED TO ROOM 213; PT AWAKE, ALERT, AMBULATORY, NO COMPLAINTS OR SIGNS OF DISTRESS.
[2019-09-07] MEDS ORDERED: [UNRECOGNIZED DRUG - OTHER] PO (13:01)
[2019-09-07 13:11] VITALS: BP 118/67
[2019-09-07] MEDS ORDERED: POTASSIUM CHLORIDE 20MEQ/100ML 100 ML IV PRN (13:30)
[2019-09-07 16:13] VITALS: BP 119/75
[2019-09-07] MEDS: KCL 20MEQ/.9 SOD CHL 1,000 ML IV SCH ×2 (16:20→22:00)
[2019-09-07] MEDS: PANTOPRAZOLE 40 MG 10ML VIAL IV SCH (16:21)
[2019-09-07] MEDS: METOPROLOL SUCCINATE 50 MG TAB XL PO SCH (16:26)
--- NOTE | 2019-09-07 17:24 | Diagnostic Imaging Report ---
EXAM: Complete Abdominal Ultrasound INDICATION: ^elevated LFT's COMPARISON: Same day CT abdomen and pelvis TECHNIQUE: Transverse and longitudinal images of the upper abdomen were obtained. FINDINGS: Liver: Size: 14.2 cm in the right midclavicular line, normal Appearance: Heterogeneous echogenicity, smooth contour Mass: Mass described in the posterior right lobe on the comparison CT is not visualized by sonography. Spleen: Size: 14 cm in length, enlarged Echogenicity: Normal Mass: No focal masses Gallbladder: Stones/Sludge: None Wall: 0.3 cm Appearance: No pericholecystic fluid or hydrops. Sonographic Lima's Sign: Negative Bile Ducts: Intrahepatic Ducts: No dilatation Extrahepatic Ducts: Common bile duct measures 0.3 cm, no dilatation Pancreas: Visualized portions of the pancreatic head, neck and proximal body are normal. Right Kidney: Size: 11 cm Echogenicity: Normal Parenchymal thickness: Normal Collecting System: No hydronephrosis Stone: None Cyst/Mass: None Left Kidney: Size: 10.4 cm Echogenicity: Normal Parenchymal thickness: Normal Collecting System: No hydronephrosis Stone: None Cyst/Mass: None Vessels: Aorta: Visualized portions are normal Inferior Vena Cava: Visualized portions are normal Main Portal Vein: 1 cm, normal size with absence of flow in keeping with portal vein thrombus identified on comparison CT. Free Fluid: No ascites or pleural effusion IMPRESSION: Portal vein thrombosis with resultant splenomegaly and heterogeneous hepatic parenchymal echotexture. Hypoattenuating mass lesion within the posterior right hepatic lobe described on the comparison CT is not identified by sonography. Abdominal MRI with and without contrast (liver mass protocol) is again suggested. Signed by: Dr. Cesar Melo M.D. on 09/07/2019 5:21 PM
--- NOTE | 2019-09-07 19:10 | NUR ---
Received the patient in report.aaox3.lyeing in the bed.on heparin drip.bed locked and in lowest position.phone and call light within reach.instructed to call for assistance as needed.
[2019-09-07] MEDS: HYDROCODONE/APAP 5MG-325MG TAB PO PRN (19:45)
--- NOTE | 2019-09-07 19:47 | NUR ---
BLOOD NEELIMA AND SENT TO THE LAB FOR PTT.PATIENT TOLERATED WELL.
[2019-09-07 20:00] VITALS: BP 89/52
--- NOTE | 2019-09-07 21:00 | NUR ---
PTT IS 74.9.NO CHANGE IN HEPARIN DRIP.
--- NOTE | 2019-09-07 21:00 | History and Physical ---
PRIMARY CARE PHYSICIAN: CONSULTANTS: 1. Peter Carpenter MD. 2. Jake Bains MD. 3. Cesar Dominguez MD. CHIEF COMPLAINT: Abdominal pain. Possible liver lesion with portal clot and urinary tract infection, abdominal pain and acute non-viral hepatitis. HISTORY: The patient is a 54-year-old female, who had a WBC of 17,000 in the emergency room. She is also complaining of increasing generalized weakness. Blood pressure was low systolic in the 99. The patient had workup previously in [place]. She had a CT scan and other tests done and brought all those results to see Dr. Cesar Dominguez recently and that the patient was told that she may have mesenteric inflammation and the patient went home, but the pain worsened where the patient now came to the hospital for further evaluation. Here in the emergency room, the patient has an AST of 564, ALT of 167, and her alkaline phosphatase is 253. The patient has a defibrillator on the left chest. Therefore, no MRI can be done and her CT scan of abdomen and pelvis, finding of main and bilateral portal vein with ill-defined 4.9 cm hypodensity in the right hepatic lobe concerning for malignancy. She also has a 5.1 cm central ventral supraumbilical fat containing abdominal hernia with surrounding inflammatory changes, possible strangulation, or acute worsening of it. The patient also has antral gastritis. The CT scan that was done was with contrast. The patient is having pain and weak, but she is not in any respiratory distress at this time. PAST MEDICAL HISTORY: Gastric perforation with repair approximately 1 year ago. She had upper endoscopy previously. Increase in generalized weakness and pain more so recently. Hypertension. Cardiomyopathy with a defibrillator placed years ago. 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 Abdominal hysterectomy. SOCIAL HISTORY: The patient does not smoke or use alcohol. No regular drugs. ALLERGIES: NO KNOWN ALLERGIES. HOME MEDICATIONS: She is on [place] p.r.n. for pain, metoprolol succinate, and lisinopril. PHYSICAL EXAMINATION: VITAL SIGNS: Temperature is 97, blood pressure 99/56, pulse rate is 105, respirations 20. GENERAL: The patient seems weak, but she is not in any distress. HEENT: Normocephalic and atraumatic. She is anicteric. NECK: Supple grossly. PULMONARY: Diminished breath sounds without any wheezing. CARDIOVASCULAR: Left chest defibrillator in place. No sign of infection. S1, S2. Regular rate and rhythm. ABDOMEN: Soft. Generalized discomfort. Non-distention. No guarding. EXTREMITIES: No cyanosis or edema. NEUROLOGIC: There is no focal deficit. LABORATORY DATA: Sodium 133, potassium 3.4, chloride 95, bicarb 24, BUN 12, creatinine 0.8, glucose is 111. Total bilirubin is 0.8, AST 564, ALT 167, alkaline phosphatase is 253, total protein 6.6, albumin 2.3. Alpha-fetoprotein is still pending. Lipase 60, amylase 51. Urinalysis; greater than 50 wbc's and many bacteria. Leukocyte esterase was negative. Coagulation; PT is 16.3, INR 1.23, and PTT 78.5. WBC 17.4, hemoglobin 8.9, hematocrit 28.5, and platelets are 495. IMAGING: Abdominal and pelvic CT scan with contrast as follows: Main and bilateral portal vein with an ill-defined 4.9 cm hypodensity in the right hepatic lobe concerning for malignancy. Recommend a liver MRI again. The patient had ICD, therefore cannot be done. Mild splenomegaly and mild colonic wall thickening are likely due to portal hypertension and congestion. A 5.1 cm central ventral supraumbilical fat containing abdominal hernia with surrounding inflammatory changes concerning for strangulation or acute worsening. Finding of antral gastritis. IMPRESSION: 1. Liver mass. 2. Portal hypertension with possible clot. 3. Leukocytosis. 4. Abdominal pain. 5. Hepatitis. 6. Leukocytosis. PLAN: 1. IV antibiotics. Anticoagulant therapy with Dr. Peter Carpenter's consultation. Check alpha-fetoprotein. 2. Consultation with Dr. Bains and Dr. Cesar Dominguez. 3. Repeat lab work. 4. Home medication, pain control, antiemetic, IV fluid. Replace electrolytes. MD DAMIR Soares/MODL /[id number]
[2019-09-07 22:00] VITALS: BP 100/62
--- NOTE | 2019-09-07 22:03 | NUR ---
BP CHECKED AND NOTED 100/62 MMOF HG.PAIN MEDICATION MORPHINE 4MG IV GIVEN.KEEP MONITOR THE PT.
[2019-09-08] VITALS (8 sets, daily range): BP systolic 92–117; BP diastolic 50–69
--- NOTE | 2019-09-08 03:20 | NUR ---
PTT IS 128.3.HOLD HEPARIN DRIP FOR 60 MTS.
[2019-09-08] MEDS: HEPARIN 25,000 UNIT 25,000 UNIT in DEXTROSE 5% 250ML 0 ML IV SCH ×2 (03:45→11:17)
--- NOTE | 2019-09-08 04:20 | NUR ---
HEPARIN RUNNING @ 7ML/HR.KEEP MONITOR THE PATIENT.
[2019-09-08] MEDS: KCL 20MEQ/.9 SOD CHL 1,000 ML IV SCH ×2 (05:16→16:28)
[2019-09-08] MEDS: PIPER-TAZ 3.375 GM 50 ML IV SCH ×3 (05:47→21:39)
[2019-09-08 06:08] LABS: BASOPHILS % 0.5 % (0.0-1.0); EOSINOPHILS % 0.5 % (0.0-6.0); HEMATOCRIT 23.3 % (34.2-44.1); HEMOGLOBIN 7.1 g/dL (12.0-16.0); LYMPHOCYTES # (AUTO) 1.1 (1.0-3.2); LYMPHOCYTES % 12.3 % (18.0-39.1); MEAN CORPUSCULAR HGB CONC 30.5 g/dL (31-35); MEAN CORPUSCULAR VOLUME 91.7 fL (81-99); MONOCYTES # (AUTO) 1.2 (0.2-0.8); MONOCYTES % 13.9 % (4.4-11.3); NEUTROPHILS # (AUTO) 6.4 (2.1-6.9); NEUTROPHILS % 72.1 % (38.7-80.0); PLATELET COUNT 331 x10e3/uL (140-360); RED BLOOD COUNT 2.54 x10e6/uL (3.6-5.1); RED CELL DISTRIBUTION WIDTH 14.2 % (11.7-14.4)
[2019-09-08 06:29] LABS: ALBUMIN 1.8 g/dL (3.5-5.0); BILIRUBIN,DIRECT 0.5 mg/dL (0.0-0.5)
[2019-09-08 06:31] LABS: ALANINE AMINOTRANSFERASE 100 IU/L (0-55); ALBUMIN 1.8 g/dL (3.5-5.0); ALBUMIN/GLOBULIN RATIO 0.5 (0.8-2.0); ALKALINE PHOSPHATASE 251 IU/L (40-150); BLOOD UREA NITROGEN < 5 mg/dL (7-26); CALCIUM 8.2 mg/dL (8.4-10.2); CHLORIDE 106 mmol/L (98-107); CREATININE, SERUM 0.72 mg/dL (0.57-1.11); EST GLOMERULAR FILTRATION RATE > 60 ML/MIN (60-); GLUCOSE 81 mg/dL (74-118); POTASSIUM 3.8 mmol/L (3.5-5.1); SODIUM 141 mmol/L (136-145)
[2019-09-08 06:32] LABS: BUN/CREATININE RATIO 7 (6-25)
[2019-09-08 06:42] LABS: PHOSPHORUS 2.6 MG/DL (2.3-4.7)
[2019-09-08 06:45] LABS: THYROID STIMULATING HORMONE 0.594 uIU/mL (0.350-4.940)
--- NOTE | 2019-09-08 07:00 | NUR ---
Bed side shift report given to oncoming Rn.stable condition.
[2019-09-08 07:13] LABS: FOLATE 11.4 ng/mL (7.0-15.4)
[2019-09-08 07:25] LABS: ANION GAP 15.8 mmol/L (8-16); CARBON DIOXIDE 23 mmol/L (22-29)
[2019-09-08] MEDS: MORPHINE SULFATE 2 MG/ML SYR 1ML IV PRN (08:34)
[2019-09-08] MEDS: PANTOPRAZOLE 40 MG 10ML VIAL IV SCH (08:53)
[2019-09-08] MEDS: METOPROLOL SUCCINATE 50 MG TAB XL PO SCH ×2 (08:54→18:15)
[2019-09-08] MEDS ORDERED: [UNRECOGNIZED DRUG - OTHER] PO SCH (09:00)
--- NOTE | 2019-09-08 09:22 | NUR ---
PTT IS THERAPEUTIC AT 56.3; WILL CONTINUE AT 7 ML/HR AND RE-ASSESS RATE IN 6 HOURS WITH REPEAT PTT PER PROTOCOL.
[2019-09-08] MEDS ORDERED: SODIUM CHLORIDE 0.9% 250ML 250 ML IV ONE (10:00)
--- NOTE | 2019-09-08 14:05 | NUR ---
pt's PTT level 42.8; will increase rate of Heparin to 8 ml/hr. will continue to monitor.
--- NOTE | 2019-09-08 16:39 | NUR ---
pt has temperature 101.1; spoke with Dr Montanez who ordered Tylenol 650mg q6h PRN. will administer and continue to monitor. Addendum: 09/08/19 at 1640 by Tien To RN will wait to start blood transfusion due to fever.
[2019-09-08] MEDS: ACETAMINOPHEN 325 MG TAB PO PRN (17:06)
[2019-09-08] MEDS ORDERED: VANCOMYCIN 1GM/NS 250 ML 250 ML IV ONE (17:15)
--- NOTE | 2019-09-08 18:08 | Consultation ---
DATE OF CONSULTATION: 09/08/2019 CHIEF COMPLAINT: Abdominal pain. HISTORY OF PRESENT ILLNESS: A very pleasant 54-year-old lady with anemia, abdominal pain. The patient has mass liver. She also has portal vein thrombosis. She has anemia and she has evidence of cirrhosis of the liver. Clinically, she has elevated liver tests. She was found to have a hernia in the ventral area with possible strangulation. She has mid abdominal pain and she was dehydrated on admission. PAST MEDICAL HISTORY: Heart disease, hypertension. PAST SURGICAL HISTORY: Small-bowel surgery. FAMILY HISTORY: Noncontributory. REVIEW OF SYSTEMS: As per history of presenting illness. PHYSICAL EXAMINATION: GENERAL: well-nourished white lady. She looks pale. HEART: Regular rate. LUNGS: Clear. ABDOMEN: Soft, tender midabdomen, abdominal pain could be related to abdominal hernia. Surgery is on the case regarding liver mass, could be a hepatoma. She has evidence of cirrhosis. Alpha-fetoprotein is pending. CA is pending. We will await tumor markers prior to committing to liver biopsy. She also has some heparin for portal vein thrombosis. We will follow the patient closely. She has multiple problems that need to be addressed one at a time. Mychal Bustos MD HSO/MODL /[id number] cc: Angela Santamaria MD
--- NOTE | 2019-09-08 19:25 | NUR ---
Received the patient in report.aaox3.assessment done.no resp.distress.lyeing in the bed.bed locked and in lowest position.phone and call light within reach.instructed to call for assistance as needed.
[2019-09-09] VITALS (8 sets, daily range): BP systolic 101–118; BP diastolic 58–76
[2019-09-09] MEDS: HYDROCODONE/APAP 5MG-325MG TAB PO PRN ×3 (01:40→21:43)
--- NOTE | 2019-09-09 02:00 | NUR ---
Blood epi and sent to the lab for PTT.
[2019-09-09] MEDS: KCL 20MEQ/.9 SOD CHL 1,000 ML IV SCH ×4 (02:04→22:00)
--- NOTE | 2019-09-09 03:30 | NUR ---
PTT 42.6.HEPARIN DRIP RATE INCREASED TO 100ML/HR.HEPARIN RUNNING @ 9ML/HR.
[2019-09-09] MEDS: PIPER-TAZ 3.375 GM 50 ML IV SCH ×3 (05:32→21:43)
[2019-09-09 05:44] LABS: BASOPHILS % 0.4 % (0.0-1.0); EOSINOPHILS # (AUTO) 0.1 (0.0-0.4); EOSINOPHILS % 0.7 % (0.0-6.0); LYMPHOCYTES # (AUTO) 1.2 (1.0-3.2); LYMPHOCYTES % 10.6 % (18.0-39.1); MEAN CORPUSCULAR HGB CONC 30.2 g/dL (31-35); MEAN CORPUSCULAR VOLUME 92.6 fL (81-99); MONOCYTES # (AUTO) 1.3 (0.2-0.8); MONOCYTES % 11.4 % (4.4-11.3); NEUTROPHILS # (AUTO) 8.5 (2.1-6.9); PLATELET COUNT 300 x10e3/uL (140-360); RED BLOOD COUNT 2.43 x10e6/uL (3.6-5.1); RED CELL DISTRIBUTION WIDTH 14.3 % (11.7-14.4)
[2019-09-09 05:47] LABS: HEMATOCRIT 22.5 % (34.2-44.1); HEMOGLOBIN 6.8 g/dL (12.0-16.0)
--- NOTE | 2019-09-09 06:25 | NUR ---
LAB CRITICAL VALUE INFORMED TO .ORDERED TO TRANSFUSE TWO UNITS OF BLOOD.
--- NOTE | 2019-09-09 07:00 | NUR ---
Bed side shift report given to oncoming RN.stable condition.
--- NOTE | 2019-09-09 07:10 | NUR ---
RCD PT AT BED PT IS ALERT AND ORIENTED PT RESTING ON BED IV PATENT PT ON HEPARIN DRIP 9 UNITS /HR BY SALINE FLUSH BED LOW AND LOCKED CALL LIGHT IN REACH
[2019-09-09] MEDS: METOPROLOL SUCCINATE 50 MG TAB XL PO SCH ×2 (08:49→17:00)
[2019-09-09] MEDS: PANTOPRAZOLE 40 MG 10ML VIAL IV SCH (08:49)
[2019-09-09] MEDS ORDERED: SODIUM CHLORIDE 0.9% 250ML 250 ML ONE ×2 (10:05→17:11)
--- NOTE | 2019-09-09 10:35 | NUR ---
blood transfusion started after verified with another RN and vitals spend 15 mts with patient
--- NOTE | 2019-09-09 12:42 | Consultation ---
DATE OF CONSULTATION: 09/09/2019 HISTORY OF PRESENT ILLNESS: The patient is a 54-year-old female known to me. She had previous surgery for gastric perforation. She presented with complaints of weakness with some abdominal pain. Evaluation revealed portal vein thrombosis with mass in the right lobe of the liver. She does not have any nausea or vomiting. No fever. PAST MEDICAL HISTORY: Significant for previous surgery about one year ago with small bowel resection. She has history of hypertension, cardiomyopathy, has a defibrillator in place. ALLERGIES: SHE HAS NO KNOWN ALLERGIES. MEDICATIONS: Metoprolol, lisinopril, and [place] for pain. FAMILY HISTORY: Noncontributory. SOCIAL HISTORY: The patient does not smoke cigarettes or drink alcohol. REVIEW OF SYSTEMS: As stated above. She has not had any fever or weight loss. PHYSICAL EXAMINATION: GENERAL: The patient is awake and alert, in no distress. VITAL SIGNS: At this time are normal. HEENT: Unremarkable. Sclerae are not icteric. NECK: Has no masses. LUNGS: Equal breath sounds are clear bilaterally. CARDIAC: Regular rate and rhythm. ABDOMEN: Soft. There was no definite mass palpable. There is a healed midline wound. There was no organomegaly. EXTREMITIES: Have no edema. NEUROLOGIC: Grossly intact. LABORATORY DATA: Hemoglobin 6.8, hematocrit 22, white blood cell count 11,000. Liver function test is mildly elevated though bilirubin is normal. ASSESSMENT: A 54-year-old female with weakness, mass in the liver, findings suggestive of portal vein thrombosis. Further labs have been ordered. Workup has been ordered, but she may require biopsy of the liver. Thank you for asking me to see Ms. Olivo. MD JALEN Sandhu/INGRID /[id number]
--- NOTE | 2019-09-09 13:30 | NUR ---
blood transfusion completed vitals checked pt resting on bed
--- NOTE | 2019-09-09 14:00 | NUR ---
PT SAID DR DENNIS SAID TO THE PT HE IS GOING TO DO BIOPSY ON TOMORROW ,I DIDN'T SEE ANY ORDERS PAGED AND TALKED DR SHARMA HE SAID DR VILLANUEVA WAITING FOR THE BLOOD REPORT THEN ONLY HE IS DOING THE BIOPSY NOTIFIED THE PT
[2019-09-09] MEDS: ONDANSETRON HCL INJ 2MG/ML 2ML 2 MG/ML VIAL IV PRN ×2 (15:40→21:43)
--- NOTE | 2019-09-09 17:00 | NUR ---
PTT 78.3 CONTINUE THE SAME
--- NOTE | 2019-09-09 17:10 | NUR ---
second unit of blood started after verified with another RN and vitals fever 100 gave 2 Tylenol
--- NOTE | 2019-09-09 17:30 | NUR ---
PT HAVE FEVER 100 AND BACK PAIN NOTIFIED DR CHOW WHEN HE CAME TO SEE THE PT HE SAID ITS OK CONTINUE THE TRANSFUSION
--- NOTE | 2019-09-09 19:05 | NUR ---
PT C/O DIARRHEA FOR 4 TIMES ,PAGED AND NOTIFIED DR CASEY GOT THE ORDER TO STOOL C DIFF NO MEDS NOW
--- NOTE | 2019-09-09 19:09 | NUR ---
PT RESTING ON BED BED SIDE REPORT GIVEN TO ONCOMING NURSE
--- NOTE | 2019-09-09 23:30 | NUR ---
PTT 55.8, remains therapeutic, no change to heparin drip. Heparin running at 8 ml/hr. Repeat PTT in AM for daily PTT. Addendum: 09/10/19 at 0156 by Ayana Stein RN Correction, drip continues at 9 ml/hr, 900 units/hr
[2019-09-10] VITALS (8 sets, daily range): BP systolic 110–131; BP diastolic 78–90
[2019-09-10] MEDS: HEPARIN 25,000 UNIT 25,000 UNIT in DEXTROSE 5% 250ML 0 ML IV SCH (03:45)
[2019-09-10 05:26] LABS: BASOPHILS # (AUTO) 0.1 (0.0-0.1); BASOPHILS % 0.5 % (0.0-1.0); EOSINOPHILS # (AUTO) 0.1 (0.0-0.4); EOSINOPHILS % 1.1 % (0.0-6.0); HEMATOCRIT 34.7 % (34.2-44.1); HEMOGLOBIN 11.2 g/dL (12.0-16.0); LYMPHOCYTES # (AUTO) 1.1 (1.0-3.2); LYMPHOCYTES % 9.6 % (18.0-39.1); MEAN CORPUSCULAR HEMOGLOBIN 28.5 pg (28-32); MEAN CORPUSCULAR HGB CONC 32.3 g/dL (31-35); MEAN CORPUSCULAR VOLUME 88.3 fL (81-99); MONOCYTES # (AUTO) 1.3 (0.2-0.8); MONOCYTES % 11.5 % (4.4-11.3); NEUTROPHILS # (AUTO) 8.8 (2.1-6.9); NEUTROPHILS % 76.3 % (38.7-80.0); PLATELET COUNT 279 x10e3/uL (140-360); RED BLOOD COUNT 3.93 x10e6/uL (3.6-5.1); RED CELL DISTRIBUTION WIDTH 14.9 % (11.7-14.4)
[2019-09-10 05:48] LABS: ANION GAP 12.8 mmol/L (8-16); BLOOD UREA NITROGEN < 5 mg/dL (7-26); CALCIUM 8.5 mg/dL (8.4-10.2); CARBON DIOXIDE 21 mmol/L (22-29); CHLORIDE 112 mmol/L (98-107); CREATININE, SERUM 0.67 mg/dL (0.57-1.11); EST GLOMERULAR FILTRATION RATE > 60 ML/MIN (60-); GLUCOSE 83 mg/dL (74-118); POTASSIUM 3.8 mmol/L (3.5-5.1); SODIUM 142 mmol/L (136-145)
[2019-09-10 05:53] LABS: BUN/CREATININE RATIO 7 (6-25)
[2019-09-10] MEDS: PIPER-TAZ 3.375 GM 50 ML IV SCH ×3 (06:41→22:00)
[2019-09-10] MEDS: KCL 20MEQ/.9 SOD CHL 1,000 ML IV SCH (06:42)
[2019-09-10] MEDS: PANTOPRAZOLE 40 MG 10ML VIAL IV SCH (09:12)
[2019-09-10] MEDS: METOPROLOL SUCCINATE 50 MG TAB XL PO SCH ×2 (09:13→17:30)
[2019-09-10] MEDS: HYDROCODONE/APAP 5MG-325MG TAB PO PRN ×2 (09:20→10:29)
--- NOTE | 2019-09-10 09:25 | NUR ---
Hugh in radiology called and said to place Heparin drip on hold for liver biopsy today.
--- NOTE | 2019-09-10 13:36 | Diagnostic Imaging Report ---
EXAM: CT Abdomen WITHOUT and WITH contrast INDICATION: Liver mass COMPARISON: Abdominal ultrasound 09/07/2019, CT abdomen pelvis 09/07/2019 TECHNIQUE: Abdomen was scanned utilizing a multidetector helical scanner from the lung base to the iliac crest before and after administration of IV contrast. Coronal and sagittal reformations were obtained. Liver mass protocol was performed. Scan was performed pre-, arterial, and portal venous phase. IV CONTRAST: 150 mL of Omnipaque 300 ORAL CONTRAST: Water COMPLICATIONS: None RADIATION DOSE: Total DLP: 2397 mGy*cm Estimated effective dose: (DLP x 0.015 x size factor) mSv CTDIvol has been reviewed. It is below the limits set by the Radiation Protocol Committee (RPC). Dose modulation, iterative reconstruction, and/or weight based adjustment of the mA/kV was utilized to reduce the radiation dose to as low as reasonably achievable. FINDINGS: LINES and TUBES: None. LOWER THORAX: Interval development of small bilateral pleural effusions, right greater than left. Unchanged trace pericardial fluid. HEPATOBILIARY: Slight interval increase in heterogeneous enhancement of the liver, notably in the posterior right hepatic lobe. The previously described right hepatic lobe hypodense lesion is not significantly changed in size and appearance when compared to the previous CT from 5 days prior and again measures up to 1.8 x 2.3 cm (as measured on image 211 series 3). The lesion is hypodense on noncontrast imaging and does not demonstrate characteristic enhancement of a hemangioma or other benign hypervascular mass. Unchanged extensive intrahepatic portal vein thrombosis. A 1.4 cm hypodense nodular focus of the posterior right hepatic lobe likely represents thrombus within a dilated portal vein radical (image 215). GALLBLADDER: No radio-opaque stones or sludge. No wall thickening. SPLEEN: The prominent spleen is unchanged in size. No focal splenic mass. PANCREAS: No focal masses or ductal dilatation. ADRENALS: No adrenal nodules KIDNEYS/URETERS: Kidneys enhance symmetrically. No hydronephrosis. No concerning solid or cystic mass. No stones. GI TRACT: Wall thickening of the gastric antrum and colon is not significantly changed. No dilated bowel loops or pneumatosis. The small bowel is suboptimally evaluated due to lack of enteric contrast. Colonic diverticulosis again noted. LYMPH NODES: No lymphadenopathy. VESSELS: Extensive intrahepatic portal vein thrombosis is not substantially changed. Again, thrombus extends into the portal confluence and proximal superior mesenteric vein. The splenic vein is patent. A 6 mm enhancing focus in the region of the distal right hepatic artery is unchanged (series 3 image 217). PERITONEUM / RETROPERITONEUM: Interval development of mild to moderate ascites throughout the abdomen and pelvis. No free intraperitoneal air. BONES: No acute osseous abnormality. SOFT TISSUES: Unchanged size of the 5.1 cm supraumbilical ventral hernia. The hernia today contains a loop of nondilated small bowel. IMPRESSION: 1. Overall unchanged size and appearance of the ill-defined right hepatic lobe hypodense lesion. The lesion does not demonstrate characteristic enhancement of a hemangioma or other benign liver mass. Differential considerations include metastatic disease, primary liver malignancy (such as intrahepatic cholangiocarcinoma), and focal ectasia of a thrombosed portal venous branch. Continued follow-up is recommended. 2. Unchanged extensive intrahepatic and extrahepatic portal venous thrombosis. Again, the thrombus extends into the proximal superior mesenteric vein. Heterogeneous enhancement of the liver parenchyma likely related to portal venous thrombosis has slightly increased. 3. Interval development of volume overload characterized by mild to moderate ascites and small bilateral pleural effusions. 4. Unchanged wall thickening of the gastric antrum and colon possibly related to portal venous congestion. Signed by: Theodore Borrero MD on 09/10/2019 1:33 PM
[2019-09-10] MEDS ORDERED: SODIUM CHLORIDE 0.9% 50ML 50 ML ONE (14:48)
[2019-09-10] MEDS ORDERED: IOPAMIDOL 370 MG/ML 200 ML INFUS..BTL INJ ONE (14:49)
[2019-09-10] MEDS ORDERED: DIPHENOXYLATE/ATROPINE TAB PO PRN (18:45)
[2019-09-11] VITALS (8 sets, daily range): BP systolic 109–143; BP diastolic 74–82
[2019-09-11] MEDS: HEPARIN 25,000 UNIT 25,000 UNIT in DEXTROSE 5% 250ML 0 ML IV SCH ×2 (02:52→06:00)
[2019-09-11] MEDS: HYDROCODONE/APAP 5MG-325MG TAB PO PRN ×3 (02:53→22:29)
[2019-09-11 05:41] LABS: BASOPHILS # (AUTO) 0.1 (0.0-0.1); BASOPHILS % 0.6 % (0.0-1.0); EOSINOPHILS # (AUTO) 0.2 (0.0-0.4); EOSINOPHILS % 1.5 % (0.0-6.0); HEMOGLOBIN 10.5 g/dL (12.0-16.0); LYMPHOCYTES # (AUTO) 1.2 (1.0-3.2); LYMPHOCYTES % 10.7 % (18.0-39.1); MEAN CORPUSCULAR HEMOGLOBIN 28.3 pg (28-32); MEAN CORPUSCULAR HGB CONC 31.8 g/dL (31-35); MEAN CORPUSCULAR VOLUME 88.9 fL (81-99); MONOCYTES # (AUTO) 1.3 (0.2-0.8); MONOCYTES % 11.2 % (4.4-11.3); NEUTROPHILS # (AUTO) 8.5 (2.1-6.9); NEUTROPHILS % 74.8 % (38.7-80.0); PLATELET COUNT 301 x10e3/uL (140-360); RED BLOOD COUNT 3.71 x10e6/uL (3.6-5.1)
--- NOTE | 2019-09-11 06:00 | NUR ---
ptt 98.5, decrease heparin by 100 units. new rate 8 ml/hr, 800 units/hr, verified with Fred OROZCO. Next PTT in 6 hrs and 12pm.
[2019-09-11 06:04] LABS: ALANINE AMINOTRANSFERASE 37 IU/L (0-55); ALBUMIN 1.8 g/dL (3.5-5.0); ALBUMIN/GLOBULIN RATIO 0.5 (0.8-2.0); ALKALINE PHOSPHATASE 229 IU/L (40-150); ANION GAP 13.6 mmol/L (8-16); BLOOD UREA NITROGEN < 5 mg/dL (7-26); CALCIUM 8.1 mg/dL (8.4-10.2); CARBON DIOXIDE 21 mmol/L (22-29); CHLORIDE 108 mmol/L (98-107); CREATININE, SERUM 0.66 mg/dL (0.57-1.11); EST GLOMERULAR FILTRATION RATE > 60 ML/MIN (60-); GLUCOSE 75 mg/dL (74-118); POTASSIUM 3.6 mmol/L (3.5-5.1); SODIUM 139 mmol/L (136-145)
[2019-09-11 06:09] LABS: BUN/CREATININE RATIO 8 (6-25)
[2019-09-11] MEDS: PIPER-TAZ 3.375 GM 50 ML IV SCH ×3 (06:12→22:27)
[2019-09-11] MEDS: PANTOPRAZOLE 40 MG 10ML VIAL IV SCH (08:30)
[2019-09-11] MEDS: METOPROLOL SUCCINATE 50 MG TAB XL PO SCH ×2 (08:31→17:44)
[2019-09-11 14:38] LABS: INR 0.99; PROTHROMBIN TIME 13.7 seconds (11.9-14.5)
[2019-09-11] MEDS: WARFARIN SOD 5 MG TAB PO SCH (17:44)
--- NOTE | 2019-09-11 19:30 | NUR ---
patient received. Patient is resting in bed. Resp even and unlabored. No acute distress noted. tele in place. heparin drip at 8ml/hr noted. call light within reach. bed low/locked. continue to monitor closely
--- NOTE | 2019-09-11 20:00 | NUR ---
PTT IS 72.5, NO CHANGE IN HEPARIN DRIP. HEPARIN DRIP INFUSING AT 8ML/HR
[2019-09-12] VITALS (8 sets, daily range): BP systolic 105–162; BP diastolic 65–83
[2019-09-12] MEDS: PIPER-TAZ 3.375 GM 50 ML IV SCH ×3 (05:44→21:10)
--- NOTE | 2019-09-12 06:31 | NUR ---
ptt 82.6, decrease heparin by 100 units. new rate 7 ml/hr (700 units/hr). Next PTT in 6 hrs per protocol
--- NOTE | 2019-09-12 07:00 | NUR ---
BEDSIDE SHIFT REPORT RECEIVED FROM THE ABSENCE MANAGEMENT CONSULTANT RN. PT AAOX4. EDUCATED PT ABOUT FALL PRECAUTIONS. CALL LIGHT WITH IN EASY REACH. INSTRUCTED PT TO USE CALL LIGHT FOR ALL THE NEEDS. PT VERBALIZED UNDERSTANDING. BED IS LOW AND LOCKED. SIDE RAILS X2. PT DENIES NEEDS AT THIS TIME.
[2019-09-12] MEDS: HYDROCODONE/APAP 5MG-325MG TAB PO PRN ×2 (08:19→19:20)
[2019-09-12] MEDS: HEPARIN 25,000 UNIT 25,000 UNIT in DEXTROSE 5% 250ML 0 ML IV SCH (08:20)
[2019-09-12] MEDS: PANTOPRAZOLE 40 MG 10ML VIAL IV SCH (08:21)
[2019-09-12] MEDS: METOPROLOL SUCCINATE 50 MG TAB XL PO SCH ×2 (08:22→18:00)
--- NOTE | 2019-09-12 08:30 | NUR ---
PTT THERAPEUTIC . NO CHANGE IN HEPARIN DOSE. NEW ORDER PLACED PTT IN 6 HRS.
[2019-09-12] MEDS ORDERED: MORPHINE SULFATE 2 MG/ML SYR 1ML IV PRN (14:00)
--- NOTE | 2019-09-12 16:45 | NUR ---
PAGED DR. LARRY REGARDING PT/ INR. SCHEDULE LAB FOR 10 DAYS DAILY PER THE
[2019-09-12 18:41] LABS: INR 1.2
--- NOTE | 2019-09-12 18:45 | NUR ---
PTT 81.9. DECREASED 100 UNITS.
[2019-09-12] MEDS: WARFARIN SOD 5 MG TAB PO SCH (18:47)
--- NOTE | 2019-09-12 19:20 | NUR ---
patient received. Patient is resting in bed. Resp even and unlabored. No acute distress noted. tele in place. heparin drip at 6 ml/hr noted. call light within reach. bed low/locked. continue to monitor closely
[2019-09-13] VITALS (8 sets, daily range): BP systolic 105–147; BP diastolic 63–83
--- NOTE | 2019-09-13 02:40 | NUR ---
PTT IS 72.8, NO CHANGE IN HEPARIN DRIP. HEPARIN DRIP INFUSING AT 6ML/HR
[2019-09-13] MEDS: ACETAMINOPHEN 325 MG TAB PO PRN ×2 (05:15→13:30)
[2019-09-13] MEDS: PIPER-TAZ 3.375 GM 50 ML IV SCH ×2 (05:25→13:30)
--- NOTE | 2019-09-13 07:00 | NUR ---
BEDSIDE SHIFT REPORT RECEIVED FROM THE FOOD SAFETY OFFICER RN. PT AAOX4. EDUCATED PT ABOUT FALL PRECAUTIONS. CALL LIGHT WITH IN EASY REACH. INSTRUCTED PT TO USE CALL LIGHT FOR ALL THE NEEDS. PT VERBALIZED UNDERSTANDING. BED IS LOW AND LOCKED. SIDE RAILS X2. PT DENIES NEEDS AT THIS TIME.
[2019-09-13] MEDS: HEPARIN 25,000 UNIT 25,000 UNIT in DEXTROSE 5% 250ML 0 ML IV SCH (08:45)
--- NOTE | 2019-09-13 08:45 | NUR ---
APTT 81.8 . HEPARIN DRIP WAS RUNNING 6 ML/HR, RATE REDUCED TO 5 ML/HR.
[2019-09-13] MEDS: PANTOPRAZOLE 40 MG 10ML VIAL IV SCH (09:08)
[2019-09-13] MEDS: METOPROLOL SUCCINATE 50 MG TAB XL PO SCH ×2 (09:15→17:00)
[2019-09-13 10:41] LABS: BASOPHILS # (AUTO) 0.1 (0.0-0.1); BASOPHILS % 0.6 % (0.0-1.0); EOSINOPHILS # (AUTO) 0.3 (0.0-0.4); EOSINOPHILS % 2.4 % (0.0-6.0); HEMATOCRIT 38.3 % (34.2-44.1); LYMPHOCYTES # (AUTO) 1.2 (1.0-3.2); MEAN CORPUSCULAR HEMOGLOBIN 28.2 pg (28-32); MEAN CORPUSCULAR HGB CONC 31.3 g/dL (31-35); MEAN CORPUSCULAR VOLUME 90.1 fL (81-99); MONOCYTES # (AUTO) 1.3 (0.2-0.8); MONOCYTES % 12.1 % (4.4-11.3); NEUTROPHILS # (AUTO) 7.7 (2.1-6.9); NEUTROPHILS % 73.2 % (38.7-80.0); PLATELET COUNT 329 x10e3/uL (140-360); RED BLOOD COUNT 4.25 x10e6/uL (3.6-5.1); RED CELL DISTRIBUTION WIDTH 15.3 % (11.7-14.4)
[2019-09-13 10:54] LABS: ALANINE AMINOTRANSFERASE 28 IU/L (0-55); ALBUMIN 2.3 g/dL (3.5-5.0); ALBUMIN/GLOBULIN RATIO 0.5 (0.8-2.0); ALKALINE PHOSPHATASE 256 IU/L (40-150); ANION GAP 11.9 mmol/L (8-16); BLOOD UREA NITROGEN 5 mg/dL (7-26); BUN/CREATININE RATIO 7 (6-25); CALCIUM 9.4 mg/dL (8.4-10.2); CARBON DIOXIDE 25 mmol/L (22-29); CHLORIDE 105 mmol/L (98-107); CREATININE, SERUM 0.68 mg/dL (0.57-1.11); EST GLOMERULAR FILTRATION RATE > 60 ML/MIN (60-); GLUCOSE 86 mg/dL (74-118); POTASSIUM 3.9 mmol/L (3.5-5.1); SODIUM 138 mmol/L (136-145)
--- NOTE | 2019-09-13 15:00 | NUR ---
PTT THERAPEUTIC 76. NO CHANGE IN HEPARIN DRIP RATE.
[2019-09-13 15:07] LABS: INR 1.92; PROTHROMBIN TIME 23.4 seconds (11.9-14.5)
--- NOTE | 2019-09-13 16:00 | NUR ---
PICC LINE RN AT BEDSIDE.
[2019-09-13] MEDS: CEFTRIAXONE SOD 2 GM/NS 100 ML 100 ML IV SCH (16:59)
[2019-09-13] MEDS: WARFARIN SOD 5 MG TAB PO SCH (17:00)
--- NOTE | 2019-09-13 17:03 | Diagnostic Imaging Report ---
Chest, portable AP view History: PICC placement Comparison: No chest radiograph comparisons available for review IMPRESSION: Right impression the PICC tip terminates in excellent position at the cavoatrial junction. The heart is within normal limits of size. Left subclavian AICD is in place. Lungs are clear. No pleural effusion consolidation, or pneumothorax. Signed by: Dru Mane MD on 09/13/2019 5:00 PM
--- NOTE | 2019-09-13 17:12 | NUR ---
PAGED RADIOLOGY REGARDING PICC LINE PLACEMENT. OKAY TO USE PER RADIOLOGY.
--- NOTE | 2019-09-13 18:14 | NUR ---
Nutrition Screen Note RD Recommendation for Physician: -Continue cardiac diet Plan of Care: RD following, monitoring for tolerance and adequacy Nutrition reason for involvement: Length of stay Primary Diagnose(s): Pt was admitted with UTI. Per MD note, it was found that pt has portal vein thrombosis with mass in the right lobe of the liver PMH: small bowel resection, HTN, cardiomyopathy Ht: 62 in Wt:138 lb BMI: 25.2 kg/m2 IBW:[address] Assessment: (09/13) Chart reviewed. Labs and meds reviewed. Pt is a 54 year old female admitted with UTI. Per MD note, it was found that pt has portal vein thrombosis with mass in the right lobe of the liver Pt was not available at time of visit. Per chart, it is recorded that pt is consuming 75-100% of meals. Unable to assess weight status at this time. Will continue to monitor. Current Diet: cardiac diet Malnutrition Evaluation (09/13/2019) The patient does not meet criteria for a specified degree of malnutrition at this time. Will re-evaluate at follow-up as appropriate. Diet Education Needs Assessment: RD is available for diet education as needed Nutrition Care Level: low Signed: Jazzy Devries, NICOLE, LD
--- NOTE | 2019-09-13 19:00 | NUR ---
BEDSIDE SHIFT REPORT GIVEN TO THE PRODUCTION OFFICER RN. PT DENIED FURTHER NEEDS
--- NOTE | 2019-09-13 19:05 | NUR ---
Bedside report completed with morning nurse. Pt alert and oriented to name, lying in bed HOB 60 degrees, Heparin running IV 20g left AC @5ml/hr. Pt denies pain at this time. Family at bedside. Call light within reach. Will continue to monitor.
--- NOTE | 2019-09-13 20:30 | NUR ---
PTT results 75.7 therapeutic, no change in Heparin dosage. ordered protocol PTT scheduled daily.
--- NOTE | 2019-09-13 21:20 | NUR ---
Removed 20g IV right AC, additional pressure applied to stop bleeding, Pt tolerated well.
[2019-09-13] MEDS: HYDROCODONE/APAP 5MG-325MG TAB PO PRN (22:30)
[2019-09-14] VITALS (11 sets, daily range): BP systolic 102–143; BP diastolic 67–97
[2019-09-14] MEDS: ACETAMINOPHEN 325 MG TAB PO PRN (08:30)
[2019-09-14] MEDS: METOPROLOL SUCCINATE 50 MG TAB XL PO SCH ×2 (08:44→16:22)
[2019-09-14] MEDS: HEPARIN 25,000 UNIT 25,000 UNIT in DEXTROSE 5% 250ML 0 ML IV SCH (08:46)
[2019-09-14 09:41] LABS: INR 2.87; PROTHROMBIN TIME 32.3 seconds (11.9-14.5)
[2019-09-14] MEDS: PANTOPRAZOLE 40 MG 10ML VIAL IV SCH (10:32)
[2019-09-14] MEDS: CEFTRIAXONE SOD 2 GM/NS 100 ML 100 ML IV SCH (16:22)
[2019-09-14] MEDS: HYDROCODONE/APAP 5MG-325MG TAB PO PRN (16:22)
[2019-09-14] MEDS ORDERED: WARFARIN SOD 2 MG TAB PO SCH (17:00)
[2019-09-14] MEDS: ONDANSETRON HCL INJ 2MG/ML 2ML 2 MG/ML VIAL IV PRN (20:52)
[2019-09-14] MEDS: MORPHINE SULFATE INJ 4 MG/ML INJ 1ML IV PRN (20:52)
[2019-09-15] VITALS (12 sets, daily range): BP systolic 102–151; BP diastolic 57–74
[2019-09-15] MEDS: HYDROCODONE/APAP 5MG-325MG TAB PO PRN ×3 (02:12→22:23)
--- NOTE | 2019-09-15 07:03 | NUR ---
BSSR GIVEN TO ONCOMING DAY SHIFT RN NESTOR , PATIENT STABLE, VSS, AFEBRILE, IN BED, CALL LIGHT WITHIN REACH, VERBAZROJAS CONTINUE PLAN OF CARE, BED IN LOWEST POSITION, LABS PENDING THIS AM
[2019-09-15] MEDS: PANTOPRAZOLE 40 MG 10ML VIAL IV SCH (09:00)
[2019-09-15] MEDS: METOPROLOL SUCCINATE 50 MG TAB XL PO SCH ×2 (09:00→17:13)
[2019-09-15 09:43] LABS: INR 2.66; PROTHROMBIN TIME 30.4 seconds (11.9-14.5)
[2019-09-15 09:50] LABS: ALANINE AMINOTRANSFERASE 20 IU/L (0-55); ALBUMIN 2.3 g/dL (3.5-5.0); ALBUMIN/GLOBULIN RATIO 0.6 (0.8-2.0); ALKALINE PHOSPHATASE 219 IU/L (40-150); ANION GAP 10.7 mmol/L (8-16); BLOOD UREA NITROGEN 7 mg/dL (7-26); BUN/CREATININE RATIO 11 (6-25); CALCIUM 8.7 mg/dL (8.4-10.2); CARBON DIOXIDE 27 mmol/L (22-29); CHLORIDE 105 mmol/L (98-107); CREATININE, SERUM 0.63 mg/dL (0.57-1.11); EST GLOMERULAR FILTRATION RATE > 60 ML/MIN (60-); GLUCOSE 112 mg/dL (74-118); POTASSIUM 3.7 mmol/L (3.5-5.1); SODIUM 139 mmol/L (136-145)
--- NOTE | 2019-09-15 14:15 | NUR ---
LATE ENTERY [id number]
[2019-09-15] MEDS: CEFTRIAXONE SOD 2 GM/NS 100 ML 100 ML IV SCH (16:03)
--- NOTE | 2019-09-15 16:51 | Progress Note ---
DATE: 09/15/2019 SUBJECTIVE: Ms. Olivo is doing well. There are no new complaints. REVIEW OF SYSTEMS: HEENT: Negative. PULMONARY: Negative. PHYSICAL EXAMINATION: GENERAL: She is currently alert, oriented, does not seem to be in acute distress. VITAL SIGNS: Stable, afebrile. IMPRESSION: 1. Bacteremia with strep viridans. 2. Portal vein thrombosis. 3. Liver cirrhosis. From Infectious Disease point of view continue Rocephin for 2 weeks and recheck blood cultures. We will order blood cultures at present time. We will follow. MD GARRICK Torres/MODL /[id number]
--- NOTE | 2019-09-15 19:12 | NUR ---
REPORT RECEIVED AT BEDSIDE, AOX4, UP WALKING IN ROOM, EFREN PICC LINE PATENT, NO C/O PAIN OR DISCOMFORT NOTED AT THIS TIME, CALL LIGHT WITHIN REACH, WILL CONTINUE CARE AT THIS TIME
[2019-09-15] MEDS: SODIUM CHLORIDE FLUSH 10 ML SYR INJ PRN (20:00)
[2019-09-16] VITALS (12 sets, daily range): BP systolic 91–138; BP diastolic 52–85
[2019-09-16] MEDS: ONDANSETRON HCL INJ 2MG/ML 2ML 2 MG/ML VIAL IV PRN ×3 (01:37→09:46)
[2019-09-16] MEDS: MORPHINE SULFATE INJ 4 MG/ML INJ 1ML IV PRN (01:40)
[2019-09-16] MEDS: SODIUM CHLORIDE FLUSH 10 ML SYR INJ PRN (03:55)
[2019-09-16] MEDS: HYDROCODONE/APAP 5MG-325MG TAB PO PRN ×2 (03:55→20:22)
[2019-09-16] MEDS: METOPROLOL SUCCINATE 50 MG TAB XL PO SCH ×2 (09:46→17:00)
[2019-09-16] MEDS: PANTOPRAZOLE 40 MG 10ML VIAL IV SCH (09:46)
--- NOTE | 2019-09-16 10:39 | Consultation ---
DATE OF CONSULTATION: 09/13/2019 This is a late entry since I do not see my consult. The patient was originally seen on September 13 for bacteremia. The patient was seen and examined. Chart reviewed. This patient was admitted on September 07, 2019. HISTORY OF PRESENT ILLNESS: The patient is a 54-year-old white female, comes in with fever, chills, not feeling [place]. [place] [address]. She had weakness. The patient was healthy otherwise. She had a CAT scan, showed that she has mesenteric inflammation. In the emergency room, her liver enzyme was elevated. AST of 564, ALT 167. The patient has arrhythmia with defibrillator placed recently. CAT scan of abdomen and pelvis showed ill-defined 4.9 hypodensity in the right hepatic lobe. She was admitted. She was seen by Hematology-Oncology. She was seen by GI. Her blood cultures came back positive for Streptococcus, so I was asked to see her and the patient with history of gastric perforation with repair approximately a year ago. Upper endoscopy previously visualized weakness, hypertension, cardiomyopathy, defibrillator placement. SOCIAL HISTORY: There is no smoking, drug abuse, or alcohol abuse. FAMILY HISTORY: Noncontributory. ALLERGIES: NKA. HOME MEDICATIONS: Metoprolol and lisinopril. The patient was admitted. Blood culture shows . The patient since admission she is feeling better. My discussion with Dr. Bains that he believes the patient probably have underlying history of liver cirrhosis with thrombosis of the portal vein. The patient has been seen by Dr. Carpenter. PAST MEDICAL HISTORY: As above. PAST SURGICAL HISTORY: As above. ALLERGIES: NKA. SOCIAL HISTORY: There is no smoking, drug abuse, or alcohol abuse. FAMILY HISTORY: Otherwise unremarkable. REVIEW OF SYSTEMS: GENERAL: Since she came here, she is doing better. HEENT: Negative. PULMONARY: Negative. CARDIAC: Negative. PHYSICAL EXAMINATION: GENERAL: Alert and oriented. Does not seem to be in acute distress. VITAL SIGNS: Stable, currently afebrile. HEENT: She is not icteric. NECK: Supple. CHEST: Clear. HEART: S1 and S2. No S3, S4, or murmur. ABDOMEN: Soft. Bowel sounds present. No tenderness. EXTREMITIES: No edema. SKIN: No rash. IMPRESSION: 1. Bacteremia with strep, concerned that the blood clot in the portal vein is infected and source of bacteremia. We will put on Rocephin. We will plan at least two weeks. Recheck blood cultures to see if resolved. She will need close followup to see that the bacteremia has resolved off antibiotic. Discussed with the patient. GI workup, liver workup per GI. 2. Anticoagulation with Hematology/Oncology to follow. 3. Discussed with the patient, answered all questions arrange IV antibiotic. MD GARRICK Torres/INGRID /[id number]
[2019-09-16 11:58] LABS: INR 2.4
--- NOTE | 2019-09-16 12:14 | NUR ---
Spoke with Love with Dr. Caceres's office. States auth for IV abx is still in progress, no approval yet.
--- NOTE | 2019-09-16 14:58 | NUR ---
Notified Dr. Carpenter about patient's INR level 2.4. He said he will be here to round on the patient later today.
--- NOTE | 2019-09-16 15:03 | NUR ---
Gave pt appointment information in case pt discharges later today - Dr. Caceres's office: [address] [facility] [address] [place] [address] Appointment for 11:15 am on 09/17/19
[2019-09-16] MEDS: CEFTRIAXONE SOD 2 GM/NS 100 ML 100 ML IV SCH (15:49)
--- NOTE | 2019-09-16 19:07 | NUR ---
Dr. Bains is here making rounds and he said from his standpoint, patient is OK to dc home and f/u in the office in 3-4 weeks.
--- NOTE | 2019-09-16 19:15 | NUR ---
Patient received sitting up in bed. AAO x 4. Patient had no complaints of pain. Respirations even and non-labored. Fall precautions implemented. Patient instructed to call for assistance when needed. Call light within reach.
--- NOTE | 2019-09-16 20:10 | NUR ---
Dr. Carpenter here to see patient. No new order received.
--- NOTE | 2019-09-16 20:24 | NUR ---
Per AMALIA Alas to give Coumadin 1mg PO.
[2019-09-17 00:46] VITALS: BP 104/51
--- NOTE | 2019-09-17 05:00 | NUR ---
PICC line dressing changed. Patient tolerated well.
[2019-09-17 05:16] VITALS: BP 99/60
[2019-09-17] MEDS: HYDROCODONE/APAP 5MG-325MG TAB PO PRN (05:16)
--- NOTE | 2019-09-17 07:00 | NUR ---
Walking rounds done. Patient resting comfortably. BSSR given to oncoming nurse.
[2019-09-17 07:56] VITALS: BP 127/55
[2019-09-17 08:08] VITALS: BP 127/55
[2019-09-17] MEDS: METOPROLOL SUCCINATE 50 MG TAB XL PO SCH (09:00)
[2019-09-17] MEDS: ONDANSETRON HCL INJ 2MG/ML 2ML 2 MG/ML VIAL IV PRN (09:05)
[2019-09-17] MEDS: PANTOPRAZOLE 40 MG 10ML VIAL IV SCH (09:05)
[2019-09-17 09:18] LABS: INR 2.35; PROTHROMBIN TIME 27.5 seconds (11.9-14.5)
--- NOTE | 2019-09-17 09:33 | NUR ---
Informed Love with Dr. Caceres's office that pt did not dc yesterday. Plan for dc today. She gave new appt time - 10 am on 09/18/19. New appt time given to pt.
[2019-09-17 11:54] VITALS: BP 94/53
[2019-09-17] MEDS: CEFTRIAXONE SOD 2 GM/NS 100 ML 100 ML IV SCH (14:41)
--- NOTE | 2019-09-17 14:56 | NUR ---
Spoke with Dr Montanez and AMALIA to discharge per Dr Montanez and Dr Carpenter.
--- NOTE | 2019-09-17 15:40 | NUR ---
Discharge instructions and prescriptions were given to the patient. Coumadin teaching and education was provided. Particularly, the importance of INR monitoring and diet teaching. Patient already has a follow up appointment arranged. She will be discharging with PICC line to continue IV antibiotics as an outpatient with Dr. Caceres's office.
--- NOTE | 2019-09-17 15:53 | NUR ---
Patient left the floor via wheelchair, she is discharged home.
[2019-09-17] MEDS ORDERED: WARFARIN SOD 2 MG TAB PO SCH (17:00)
[2019-09-17] MEDS ORDERED: WARFARIN SOD 1 MG TAB PO SCH (17:00)
--- NOTE | 2019-09-18 05:15 | Discharge Summary ---
CONSULTANTS: 1. Dr. Elizabeth Caceres. 2. Dr. Peter Carpenter. 3. Dr. Cesar Dominguez. 4. Dr. Jake Bains. FINAL DIAGNOSES: 1. Portal venous thrombosis. The patient is on anticoagulant therapy for Coumadin 2 mg daily. 2. Enhancement of the liver parenchyma, ill-defined right hepatic lobe hypodense lesion. Interventional Radiology here at [facility] did not want to do biopsy. The patient will follow up with Dr. Peter Carpenter and we will determine at a later date on management of the lesion. Discussed with the patient and family. Discussed with Dr. Peter Carpenter. The patient will need to follow up on a closely basis. 3. Bacteremia with Streptococcus viridans on blood cultures. 4. Fever, resolved. 5. Acute hepatitis with elevation of AST, ALT, alkaline phosphate, resolved. SUMMARY: The patient is a 54-year-old female, came to the hospital with abdominal discomfort, pain, increasing fatigueness. Lab work showed patient AST was 554, ALT 167, alkaline phosphate is 253. Abdominal and pelvic CT scan along with abdominal ultrasound done in emergency room which showed main and bilateral portal vein with ill-defined 4.9 cm hypodensity in the right hepatic lobe concerning for multiple etiology. A consultation with Interventional Radiology subsequently done and did not do any biopsy refusal of the interventional radiologist at this time. In the meantime, the patient was having fever and the patient was treated with antibiotics. Blood culture grow out Streptococcus viridans. The patient had other multiple workup done. She subsequently had a right upper extremity PICC line placement for IV antibiotic for two more weeks of Rocephin. The patient to follow up in the office of Dr. Caceres for the antibiotic arrangement. The patient will also need to follow up with Dr. Hernandez for anticoagulant therapy 1st and 2nd is to follow up with the possibilities of an outpatient arrangement for biopsy of the liver lesion noted on 2 CT scan for ruling out malignancy. I both myself and Dr. Hernandez discussed with the patient and family extensively on the importance of followup for the further planning of this finding. Otherwise, the patient is stable. She is afebrile. She is eating. She tolerate all her diet and she is ambulatory. The pain is in good control, would not much of pain medication. Liver enzyme has trending down as well. Overall, the patient is stable. She is feeling better, almost back to baseline. The patient will go home to recover. Continue with IV antibiotic for 2 weeks as mention and Coumadin 2 mg once a day, brand name medically necessary written and Zofran as needed for nausea and vomiting. The patient is to follow up closely with Dr. Hernandez and her primary care physician for any adjustment of her medication. The patient is stable, discharged today. MD DAMIR Soares/MODL /[id number]
== END 2019-09-17 16:12 | disposition home or self-care (01) | DRG 442 ==
LOC: ER 22:29 → ERHOLD 09-07 04:27 → MED/SURG2 09-07 13:04
PROVIDERS: ADMIT Internal Medicine; ATTEND Internal Medicine
PROC: 30243N1 Transfusion of Nonautologous Red Blood Cells into Central Vein, Percutaneous Approach (ICD-10-PCS; 2019-09-09)
PROC: 02HV33Z Insertion of Infusion Device into Superior Vena Cava, Percutaneous Approach (ICD-10-PCS; principal; 2019-09-13)
DX: I81 Portal vein thrombosis (principal); B17.9 Acute viral hepatitis, unspecified; R78.81 Bacteremia; R16.0 Hepatomegaly, not elsewhere classified; B95.4 Other streptococcus as the cause of diseases classified elsewhere; K74.60 Unspecified cirrhosis of liver
CPT/HCPCS: 36415; 36569; 74170; 74177; 76700; 80048; 80053; 80061; 80076; 81001; 82105; 82150; 82378; 82607; 82746; 83690; 83735; 84100; 84443; 85025; 85610; 85730; 86850; 86900; 86920; 87040; 87071; 87205; 87493; 96361; 96366; 99284; J0696; J1644; J2270; J2405; J2543; J3370; J7030; J7050; P9016; Q9967